=== PATIENT | female | born 1935 | race Caucasian/White ===

== ENCOUNTER 2018-10-15 08:24 | Observation (INO) ==
[2018-10-15] MEDS ORDERED: NORMAL SALINE 1,000 ML IV ONE (08:29)
[2018-10-15] MEDS ORDERED: PANTOPRAZOLE SODIUM 40 MG/100 ML PIGGYBACK IV ONE (09:04)
[2018-10-15 09:06] LABS: Hematocrit 39.8 % (37.0-47.0); Hemoglobin 12.9 gm/dL (12.5-16.0); Mean Cell Volume 91.5 fl (78-100); Mean Corpuscular Hemoglobin 29.7 pg (27-31); Mean Corpuscular Hgb Conc 32.4 g/dl (32-36); Neutrophil # 13.7 K/mm3 (1.3-6.0); Neutrophil % 85.9 % (42-75.0); Platelet Count 429 K/mm3 (150-450); Red Blood Count 4.35 M/mm3 (4.2-5.4); Red Cell Distribution Width 13.4 % (11.5-14.0); White Blood Count 15.9 K/mm3 (4.0-10.5)
[2018-10-15 09:09] LABS: Prothrombin Time (Patient) 10.7 Seconds (9.0-11.0)
[2018-10-15 09:10] LABS: INR 1.07 INR (0.90-1.10); Partial Thrombolplastin Time 22.9 Seconds (24-32)
[2018-10-15 09:13] LABS: Albumin * 3.8 gm/dl (3.4-5.0); Anion Gap 15.9 mmol/L (6.8-13.8); BUN/Creatinine Ratio 31.4 (9.0-21.6); Bilirubin, Total 0.4 mg/dL (0.0-1.1); Ca. Corrected For Albumin 10.1 mg/dL (8.4-10.2); Calcium * 10.3 mg/dL (7.9-10.9); Carbon Dioxide 30.5 mmol/L (24-32.6); Potassium 3.4 mmol/L (3.4-4.6); Total Protein 8.3 gm/dL (6.2-8.2)
[2018-10-15] MEDS ORDERED: DIATRIZOATE MEGLUMINE, SODIUM 30 ML BTL PO ONE (09:14)
--- NOTE | 2018-10-15 10:32 | ERNOTE ---
GI Bleeding/Rectal Pain ER Date of Service: 10/15/18 Time Seen by Provider: 10/15/18 08:27 Source: patient Exam Limitations: no limitations Immunizations: IMMUNIZATION HX Immunizations Up to Date Yes History of Influenza Vaccine No Hx Pneumococcal Vaccination Yes Allergies/Adverse Reactions: Allergies No Known Allergies Allergy (Verified 10/15/18 08:28) Home Medications: HOME MEDICATIONS amlodipine 10 mg tablet 10 mg PO DAILY #90 tab 08/10/18 [Last Taken Unknown] lisinopril 40 mg tablet 40 mg PO BID #180 tab 08/18/18 [Last Taken Unknown] metoprolol tartrate 50 mg tablet 50 mg PO BID #180 tab 08/18/18 [Last Taken Unknown] furosemide 40 mg tablet 40 mg PO DAILY #90 tab 08/23/18 [Last Taken Unknown] spironolactone 25 mg tablet 25 mg PO DAILY #90 tab 08/23/18 [Last Taken Unknown] trazodone 50 mg tablet 100 mg PO HS PRN #180 tab 08/25/18 [Last Taken Unknown] Narrative: Patient presents to the ED via ambulance for bloody stool. This started this morning. She had what she describes as a large bloody bowel movement with small clots. She has never had this before. Had back pain and has been taking a fair amount of Ibuprofen also baby ASA. Abdominal cramping earlier, none now. No vomiting. No CP or SOB. No bad food exposures. No trauma. Nothing makes this better or worse. Has not seen anyone else for this. Timing: constant Quality/Severity: Present: other - currently no abd pain, just some mild cramping Nausea/Vomiting: Present: none Abdominal Pain: Present: other - vague cramping Associated Symptoms: Denies: black stools Prior Treament: Denies: recently seen Review of Systems - Review of Systems Constitutional: Absent: fever EYE: Absent: eye pain Respiratory: Absent: shortness of breath Cardiology: Absent: chest pain Gastrointestinal/Abdominal: Present: no symptoms reported Genitourinary: Absent: dysuria All Other Systems: All systems neg except as marked Medical History (Last Reviewed 10/15/18 @ 12:26 by Matthew Gunn MD) Primary osteoarthritis involving multiple joints (Chronic) Onset Date: 07/02 Insomnia (Chronic) Onset Date: 07/02/17 Benign essential HTN (Chronic) Onset Date: 07/02/17 Blood pressure goal is less than 150/90mmHg. Arthritis Onset Date: Unknown HTN (hypertension) Onset Date: Unknown Murmur Onset Date: Unknown Surgical History: Surgical History (Last Reviewed 10/15/18 @ 12:26 by Matthew Gunn MD) Hx of cholecystectomy Onset Date: ~1975 Age 40 Hx of colonoscopy Onset Date: ~1999 Hx of hysterectomy Onset Date: ~1965 Age 30 Family History: Family History (Last Reviewed 10/15/18 @ 12:26 by Matthew Gunn MD) Father , Age 49 Heart disease Mother , Age 65 - Unknown health No problems noted. Sister Heart disease Mental disease Social History: Preferred Language Italian Smoking Status Never smoker Psych History No pertinent hx Alcohol Use none Drug Use none (Last Updated 07/12/18 @ 15:44 by Winifred Maher) No Social History Section defined Physical Exam - Physical Exam General Appearance: Present: alert, no apparent distress Head Exam: Present: normal inspection, no evidence of injury Eye Exam: Normal inspection: bilateral, PERRL: bilateral Ears, Nose, Throat: Present: normal ENT inspection Neck: Present: normal inspection Respiratory: Present: no respiratory distress, normal breath sounds, no accessory muscle use, lungs clear Cardiovascular/Chest: Present: regular rate, rhythm, normal peripheral pulses Gastrointestinal/Abdominal: Present: normal bowel sounds, soft, other - minimal periumbilical and suprapubic tenderness Back Exam: Absent: CVA tenderness (R), CVA tenderness (L) Extremity Exam: Present: normal inspection Neurological Exam: Present: alert, no motor/sensory deficits Skin Exam: Present: normal color, warm/dry Progress - Results and Orders Patient's Lab Results:: I have reviewed the patient's lab results. - Vital Signs Patient's Vital Signs:: I have reviewed the patient's vital signs. Vital Signs: Vital Signs 10/15/18 08:30 10/15/18 08:36 10/15/18 09:28 Temperature 36.3 C Pulse Rate 66 63 74 Respiratory Rate 16 16 18 Blood Pressure 127/64 109/64 157/71 H O2 Sat by Pulse Oximetry 97 97 99 10/15/18 09:54 Temperature Pulse Rate 67 Respiratory Rate 23 H Blood Pressure 147/67 O2 Sat by Pulse Oximetry 97 - CT/Ultrasound CT/Ultrasound Narrative: I reviewed official radiology report for CT scan - Progress/Reassessment Chief Complaint: GI Bleed Progress Note-Subjective: 10/15/18 12:27 IV fluids and IV ABx given. I spoke with Dr Betts then with Dr Hussein who will admit obs. Clinically her BM here was guaiac positive, looked more like an infectious diarrhea. Will admit for further evaluation and treatment. Departure Clinical Impression: Colitis, GI bleeding - Departure Disposition: Still a patient Condition: Fair Referrals: Cesia Garcia DO [Primary Care Provider] -
[2018-10-15 10:39] LABS: Urine Bilirubin Negative (NEGATIVE); Urine Blood Negative /ul (NEGATIVE); Urine Ketone Negative (NEGATIVE); Urine Nitrite Negative (NEGATIVE); Urine Protein Negative (NEGATIVE); Urine Specific Gravity 1.015 SP.GR. (1.005-1.010); Urine Urobilinogen Normal (NORMAL)
[2018-10-15 10:46] LABS: Urine Appearance Clear (CLEAR); Urine Bacteria None Seen; Urine Color Yellow; Urine RBC None Seen /hpf (0-5); Urine WBC None Seen /hpf (0-5)
[2018-10-15] MEDS ORDERED: MORPHINE SULFATE 4 MG/ML SYRG IV ONE (12:03)
[2018-10-15] MEDS ORDERED: metroNIDAZOLE/SODIUM CHLORIDE 500 MG/100 ML BAG IV SCH (12:15)
[2018-10-15] MEDS ORDERED: LEVOFLOXACIN IN DEXTROSE 5 % 500 MG/100 ML BAG IV SCH (12:15)
[2018-10-15] MEDS ORDERED: MORPHINE SULFATE 4 MG/ML SYRG IV PRN (14:34)
[2018-10-15] MEDS ORDERED: traMADol HCL 50 MG TABLET PO PRN (14:43)
[2018-10-15] MEDS ORDERED: traZODone HCL 50 MG TABLET PO PRN (14:44)
--- NOTE | 2018-10-15 14:45 | HP ---
Chief Complaint - Chief Complaint Date of Service: 10/15/18 Time of Service: 14:45 Chief Complaint: Blood In Stool History of Present Illness: Birdie is an 82 yo female that presented to the [facility] ER with abdominal pain and blood in stool. She reports her first episode was this morning, but had another "rust" colored stool in the ER that was hemoccult positive. She reports severe abdominal pain that moves. She denies fever, chills, nausea, or vomiting. She denies eating salad or uncooked meat recently. She denies any other sick friends or family members. She reports having a colonoscopy several years ago that was incomplete and required barium study that was done by GI. She denies any known colon problems but does state that she has been told that she has irritable bowel syndrome. She currently reports that she is pain free, after receiving morphine in the ER. Labs show WBC elevated near 15K and hemoglobin of 12. Medical History (Last Reviewed 10/15/18 @ 12:53 by Shayrn Garcia RN) Primary osteoarthritis involving multiple joints (Chronic) Onset Date: 07/02/17 Insomnia (Chronic) Onset Date: 07/02/17 Benign essential HTN (Chronic) Onset Date: 07/02/17 Blood pressure goal is less than 150/90mmHg. Arthritis Onset Date: Unknown HTN (hypertension) Onset Date: Unknown Murmur Onset Date: Unknown Surgical History: Surgical History (Last Reviewed 10/15/18 @ 12:53 by Sharyn Garcia RN) Hx of cholecystectomy Onset Date: ~1975 Age 40 Hx of colonoscopy Onset Date: ~1999 Hx of hysterectomy Onset Date: ~1965 Age 30 Family History: Family History (Last Reviewed 10/15/18 @ 12:53 by Sahryn Garcia RN) Father , Age 49 Heart disease Mother , Age 65 - Unknown health No problems noted. Sister Heart disease Mental disease Social History: Patient Lives/Resources Home Utilized Occupation retired Preferred Language Indonesian Do you have any congregational or Yes: Yazdanism / Restorationist cultural preference? Smoking Status Never smoker Have you smoked in the past 12 No months Psych History No pertinent hx Alcohol Use none Drug Use none (Last Updated 07/12/18 @ 15:44 by Winifred Maher) No Social History Section defined Review Of Systems (GEN) - Review of Systems Generalized/Overall Review: Present: Fatigue. Absent: Chills, Fever EENTM: Present: No Symptoms Reported Respiratory: Absent: Cough, Shortness of Breath Cardiac: Absent: Chest Pain, Edema, Palpitations Abdominal: Present: Abdominal Pain, Bright blood from rectum. Absent: Nausea, Vomiting, Hematemesis Genitourinary: Present: No Symptoms Reported Musculoskeletal: Present: No Symptoms Reported Neurological: Present: No Symptoms Reported Skin: Present: No Symptoms Reported Immunizations: IMMUNIZATION HX Immunizations Up to Date Yes History of Influenza Vaccine No Hx Pneumococcal Vaccination Yes Allergies/Adverse Reactions: Allergies Allergy/AdvReac Type Severity Reaction Status Date / Time No Known Allergies Allergy Verified 10/15/18 12:53 Home Medications: HOME MEDICATIONS amlodipine 10 mg tablet 10 mg PO DAILY #90 tab 08/10/18 [Last Taken 10/15/18] lisinopril 40 mg tablet 40 mg PO BID #180 tab 08/18/18 [Last Taken 10/15/18] metoprolol tartrate 50 mg tablet 50 mg PO BID #180 tab 08/18/18 [Last Taken 10/15/18] furosemide 40 mg tablet 40 mg PO DAILY #90 tab 08/23/18 [Last Taken 10/15/18] spironolactone 25 mg tablet 25 mg PO DAILY #90 tab 08/23/18 [Last Taken 10/15/18] trazodone 50 mg tablet 100 mg PO HS PRN #180 tab 08/25/18 [Last Taken 10/14/18] Exam - Exam Vital Signs: Vital Signs - Last Taken Temp 36.4 C 10/15/18 12:55 Pulse 76 10/15/18 12:55 Resp 20 10/15/18 12:55 BP 164/76 H 10/15/18 12:55 Pulse Ox 98 10/15/18 12:55 Constitutional: Present: Alert, Oriented x3, Cooperative, No distress ENT Exam: Present: hearing grossly normal Eye Exam: bilateral eye: normal inspection Respiratory: Present: lungs clear, normal breath sounds Cardiovascular/Chest: Present: regular rate, rhythm, no edema, no murmur Abdomen: Present: Normal bowel sounds, soft, nondistended, no rebound tenderness, no hepatospenomegaly, no masses, tender - diffuse. Absent: guarding, rigidity Extremity: Present: non-tender, normal inspection Skin Exam: Present: normal color, warm/dry, no cyanosis Neurologic: Present: no motor/sensory deficits, alert, normal mood/affect, oriented x 3 Appearance: Present: appropriate appearance, appropriate insight Eye contact: Present: cooperative, good eye contact, normal speech Thoughts: Present: normal thought pattern, no apparent hallucination Diagnostic Studies: Abnormal Lab Results 10/15/18 10/15/18 10/15/18 Range/Units 08:55 08:55 08:55 WBC 15.9 H (4.0-10.5) K/mm3 Immature Gran % (Auto) 1.10 H (0.001-0.429) % Immature Gran # (Auto) 0.18 H (0.000-0.0310) K/mm3 Neutrophils % 85.9 H (42-75.0) % Lymphocytes % 7.0 L (20-51) % Neutrophils # 13.7 H (1.3-6.0) K/mm3 Lymphocytes # 1.11 L (1.5-3.5) k/mm3 PTT ([place]) 22.9 L (24-32) Seconds Anion Gap 15.9 H (6.8-13.8) mmol/L BUN 33 H (3-23) mg/dL Est GFR (Non-Af Amer) 53 L (60-130) mL/min BUN/Creatinine Ratio 31.4 H (9.0-21.6) Random Glucose 117 H (70-110) mg/dL AST 63 H (0-48) U/L Alkaline Phosphatase 268 H (50-170) U/L Total Protein 8.3 H (6.2-8.2) gm/dL Stool Occult Blood 10/15/18 Range/Units 08:55 WBC (4.0-10.5) K/mm3 Immature Gran % (Auto) (0.001-0.429) % Immature Gran # (Auto) (0.000-0.0310) K/mm3 Neutrophils % (42-75.0) % Lymphocytes % (20-51) % Neutrophils # (1.3-6.0) K/mm3 Lymphocytes # (1.5-3.5) k/mm3 PTT ([place]) (24-32) Seconds Anion Gap (6.8-13.8) mmol/L BUN (3-23) mg/dL Est GFR (Non-Af Amer) (60-130) mL/min BUN/Creatinine Ratio (9.0-21.6) Random Glucose (70-110) mg/dL AST (0-48) U/L Alkaline Phosphatase (50-170) U/L Total Protein (6.2-8.2) gm/dL Stool Occult Blood Positive H Laboratory Results WBC 15.9 K/mm3 (4.0-10.5) H 10/15/18 08:55 RBC 4.35 M/mm3 (4.2-5.4) 10/15/18 08:55 Hgb 12.9 gm/dL (12.5-16.0) 10/15/18 08:55 Hct 39.8 % (37.0-47.0) 10/15/18 08:55 MCV 91.5 fl (78-100) 10/15/18 08:55 MCH 29.7 pg (27-31) 10/15/18 08:55 MCHC 32.4 g/dl (32-36) 10/15/18 08:55 RDW 13.4 % (11.5-14.0) 10/15/18 08:55 Plt Count 429 K/mm3 (150-450) 10/15/18 08:55 MPV 8.0 fl (8-12.5) 10/15/18 08:55 Immature Gran % (Auto) 1.10 % (0.001-0.429) H 10/15/18 08:55 Immature Gran # (Auto) 0.18 K/mm3 (0.000-0.0310) H 10/15/18 08:55 Neutrophils % 85.9 % (42-75.0) H 10/15/18 08:55 Lymphocytes % 7.0 % (20-51) L 10/15/18 08:55 Monocytes % 5.8 % (0.0-9) 10/15/18 08:55 Eosinophils % 0.0 % (0.0-3.0) 10/15/18 08:55 Basophils % 0.2 % (0.0-1.0) 10/15/18 08:55 Nucleated RBC % 0.0 k/mm3 (0-1) 10/15/18 08:55 Neutrophils # 13.7 K/mm3 (1.3-6.0) H 10/15/18 08:55 Lymphocytes # 1.11 k/mm3 (1.5-3.5) L 10/15/18 08:55 Monocytes # 0.9 k/mm3 (0.0-1.0) 10/15/18 08:55 Eosinophils # 0.0 k/mm3 (0.0-0.7) 10/15/18 08:55 Absolute Basophils 0.0 k/mm3 (0.0-0.1) 10/15/18 08:55 PT 10.7 Seconds (9.0-11.0) 10/15/18 08:55 INR (Anticoag Therapy) 1.07 INR (0.90-1.10) 10/15/18 08:55 PTT ([place]) 22.9 Seconds (24-32) L 10/15/18 08:55 Sodium 141 mmol/L (132-142) 10/15/18 08:55 Plasma Sodium 141 mmol/L (130-142) 10/15/18 08:55 Potassium 3.4 mmol/L (3.4-4.6) D 10/15/18 08:55 Chloride 98 mmol/L (97-106) 10/15/18 08:55 Carbon Dioxide 30.5 mmol/L (24-32.6) 10/15/18 08:55 Anion Gap 15.9 mmol/L (6.8-13.8) H 10/15/18 08:55 BUN 33 mg/dL (3-23) H 10/15/18 08:55 Creatinine 1.05 mg/dL (0.4-1.4) 10/15/18 08:55 Est GFR (Non-Af Amer) 53 mL/min (60-130) L 10/15/18 08:55 BUN/Creatinine Ratio 31.4 (9.0-21.6) H 10/15/18 08:55 Random Glucose 117 mg/dL (70-110) H 10/15/18 08:55 Calcium 10.3 mg/dL (7.9-10.9) 10/15/18 08:55 Calcium Adj for Albumin 10.1 mg/dL (8.4-10.2) 10/15/18 08:55 Total Bilirubin 0.4 mg/dL (0.0-1.1) 10/15/18 08:55 AST 63 U/L (0-48) H 10/15/18 08:55 ALT 63 U/L (19-67) 10/15/18 08:55 Alkaline Phosphatase 268 U/L (50-170) H 10/15/18 08:55 Total Protein 8.3 gm/dL (6.2-8.2) H 10/15/18 08:55 Albumin 3.8 gm/dl (3.4-5.0) 10/15/18 08:55 Lipase 159 U/L (73-393) 10/15/18 08:55 Urine Color Yellow 10/15/18 10:33 Urine Appearance Clear (CLEAR) 10/15/18 10:33 Urine pH 6.0 pH (5.0-7.0) 10/15/18 10:33 Ur Specific [place] 1.015 SP.GR. (1.005-1.010) 10/15/18 10:33 Urine Protein Negative mg/dL (NEGATIVE) 10/15/18 10:33 Urine Glucose (UA) Negative mg/dL (NEGATIVE) 10/15/18 10:33 Urine Ketones Negative mg/dL (NEGATIVE) 10/15/18 10:33 Urine Blood Negative /ul (NEGATIVE) 10/15/18 10:33 Urine Nitrate Negative (NEGATIVE) 10/15/18 10:33 Urine Bilirubin Negative mg/dl (NEGATIVE) 10/15/18 10:33 Urine Urobilinogen Normal EU/dl (NORMAL) 10/15/18 10:33 Ur Leukocyte Esterase Negative /ul (NEGATIVE) 10/15/18 10:33 Urine RBC None seen /hpf (0-5) 10/15/18 10:33 Urine WBC None seen /hpf (0-5) 10/15/18 10:33 Ur Epithelial Cells 0-5 /hpf (0-5) 10/15/18 10:33 Urine Bacteria None seen (NONE) 10/15/18 10:33 Urine Culture Comments No culture indicated 10/15/18 10:33 Stool Occult Blood Positive H 10/15/18 08:55 Blood Type A Positive 10/15/18 08:55 Antibody Screen Negative 10/15/18 08:55 Assessment/Plan - Assessment/Plan (1) Colitis Assessment: Birdie is an 82 yo female with: 1) GI Bleed - Hemoccult positive, visualized by ERP as rust colored and infectious appearing. Likely lower GI bleed. Will cover with PPI just in case of gastric bleed. Will monitor hemograms every 6 hours. Birdie is not acutely ill and GI bleed does not appear to be significant so I will admit to observation and she may have clear liquid diet for now. GI bleed suspected to be secondary to colitis, possibly infectious. If symptoms controlled and hemogram stable may be discharged to home tomorrow. 2) Infectious Colitis - Suspected based on leukocytosis and CT imaging. Bloody loose stools present. Will treat with Levaquin 500mg PO daily. Culture stools and ova and parasite pending. 3) Abnormal CT - Findings may all be secondary to colitis. But may consider outpatient follow up with GI vs general surgery. Problem: Acute (2) GI bleeding Problem: Acute Qualifiers: GI bleed type/associated pathology: unspecified gastrointestinal hemorrhage type Qualified Code(s): K92.2 - Gastrointestinal hemorrhage, unspecified
[2018-10-15 14:55] LABS: Hematocrit 32.7 % (37.0-47.0); Hemoglobin 10.8 gm/dL (12.5-16.0); Mean Cell Volume 90.6 fl (78-100); Mean Corpuscular Hemoglobin 29.9 pg (27-31); Mean Platelet Volume 7.9 fl (8-12.5); Platelet Count 282 K/mm3 (150-450); Red Blood Count 3.61 M/mm3 (4.2-5.4); Red Cell Distribution Width 13.3 % (11.5-14.0); White Blood Count 15.3 K/mm3 (4.0-10.5)
[2018-10-15] MEDS: ACETAMINOPHEN 325 MG TABLET PO PRN (20:21)
[2018-10-15] MEDS: METOPROLOL TARTRATE 50 MG TABLET PO SCH (20:21)
[2018-10-15] MEDS: LISINOPRIL 40 MG TABLET PO SCH (20:30)
[2018-10-15 20:40] LABS: Hematocrit 35.6 % (37.0-47.0); Hemoglobin 11.7 gm/dL (12.5-16.0); Mean Cell Volume 90.1 fl (78-100); Mean Corpuscular Hemoglobin 29.6 pg (27-31); Mean Corpuscular Hgb Conc 32.9 g/dl (32-36); Mean Platelet Volume 7.9 fl (8-12.5); Platelet Count 329 K/mm3 (150-450); Red Blood Count 3.95 M/mm3 (4.2-5.4); Red Cell Distribution Width 13.3 % (11.5-14.0); White Blood Count 14.7 K/mm3 (4.0-10.5)
[2018-10-16 03:05] LABS: Hematocrit 33.2 % (37.0-47.0); Hemoglobin 10.9 gm/dL (12.5-16.0); Mean Cell Volume 90.5 fl (78-100); Mean Corpuscular Hemoglobin 29.7 pg (27-31); Mean Corpuscular Hgb Conc 32.8 g/dl (32-36); Mean Platelet Volume 7.7 fl (8-12.5); Platelet Count 261 K/mm3 (150-450); Red Blood Count 3.67 M/mm3 (4.2-5.4); Red Cell Distribution Width 13.5 % (11.5-14.0); White Blood Count 12.8 K/mm3 (4.0-10.5)
[2018-10-16 06:39] LABS: Albumin * 2.8 gm/dl (3.4-5.0); Anion Gap 11.1 mmol/L (6.8-13.8); Bilirubin, Total 0.4 mg/dL (0.0-1.1); Ca. Corrected For Albumin 9.9 mg/dL (8.4-10.2); Calcium * 9.3 mg/dL (7.9-10.9); Carbon Dioxide 29.3 mmol/L (24-32.6); Potassium 3.4 mmol/L (3.4-4.6); Total Protein 6.7 gm/dL (6.2-8.2)
[2018-10-16 08:48] LABS: Hematocrit 34.9 % (37.0-47.0); Hemoglobin 11.3 gm/dL (12.5-16.0); Mean Cell Volume 90.9 fl (78-100); Mean Corpuscular Hemoglobin 29.4 pg (27-31); Mean Corpuscular Hgb Conc 32.4 g/dl (32-36); Mean Platelet Volume 8.1 fl (8-12.5); Platelet Count 299 K/mm3 (150-450); Red Blood Count 3.84 M/mm3 (4.2-5.4); Red Cell Distribution Width 13.5 % (11.5-14.0); White Blood Count 15.3 K/mm3 (4.0-10.5)
[2018-10-16] MEDS: ACETAMINOPHEN 325 MG TABLET PO PRN (08:48)
[2018-10-16] MEDS: METOPROLOL TARTRATE 50 MG TABLET PO SCH (08:49)
[2018-10-16] MEDS: LISINOPRIL 40 MG TABLET PO SCH (08:50)
[2018-10-16] MEDS ORDERED: FUROSEMIDE 40 MG TABLET PO SCH (09:00)
[2018-10-16] MEDS ORDERED: PANTOPRAZOLE SODIUM 40 MG in NORMAL SALINE 100 ML IV SCH (09:00)
[2018-10-16] MEDS ORDERED: SPIRONOLACTONE 25 MG TABLET PO SCH (09:00)
[2018-10-16] MEDS ORDERED: amLODIPine BESYLATE 10 MG TABLET PO SCH (09:00)
--- NOTE | 2018-10-16 10:34 | DS ---
Description of Stay: 82-year-old female presented to the ER yesterday with abdominal pain and blood in her stool. She states that she started having diarrhea the day of admission, she had only had a few episodes of this. She was Hemoccult positive in the ER. Last bowel movement was the day of admission, her hemoglobin was 12.9 and trended down to 11.3 upon discharge. Some of the drop can be attributed to hemodilution from the IV fluids she received. She was not actively bleeding while here and her vital signs have been stable. She denies having any fevers or chills. Abdominal CT scan was obtained showing nonspecific bowel thickening over her distal transverse colon down to the rectosigmoid colon indicating likely colitis versus ischemia (ischemia less likely though due to her benign exam, being pain-free). There is mentioned a possibility of a partial potential obstruction proximal to the bowel wall thickening of the distal transverse colon though the patient was passing gas well, having regular bowel movements, and was not in any abdominal pain once admitted to the floor. Her exam on discharge was benign. She was discharged home in stable condition. We will continue oral antibiotics for possible colitis as she had an elevated white count upon admission at 15.9 which trended down to 15.3. She is to take the antibiotics as directed. We will have her follow-up with Dr. Hussein in the next 3-5 days for reevaluation, and repeat CBC to check white blood cell count as well as hemoglobin levels. Procedures Performed: none Results and Findings: Pending Mircobiology Results 10/15/18 10:42 Stool Stool Culture - Preliminary No Pathogens Isolated Lab Pending Results 10/15/18 08:55: WBC 15.9 H, RBC 4.35, Hgb 12.9, Hct 39.8, MCV 91.5, MCH 29.7, MCHC 32.4, RDW 13.4, Plt Count 429, MPV 8.0, Immature Gran % (Auto) 1.10 H, Immature Gran # (Auto) 0.18 H, Neutrophils % 85.9 H, Lymphocytes % 7.0 L, Monocytes % 5.8, Eosinophils % 0.0, Basophils % 0.2, Nucleated RBC % 0.0, Neutrophils # 13.7 H, Lymphocytes # 1.11 L, Monocytes # 0.9, Eosinophils # 0.0, Absolute Basophils 0.0 10/15/18 08:55: Sodium 141, Plasma Sodium 141, Potassium 3.4 D, Chloride 98, Carbon Dioxide 30.5, Anion Gap 15.9 H, BUN 33 H, Creatinine 1.05, Est GFR (Non- Af Amer) 53 L, BUN/Creatinine Ratio 31.4 H, Random Glucose 117 H, Calcium 10.3, Calcium Adj for Albumin 10.1, Total Bilirubin 0.4, AST 63 H, ALT 63, Alkaline Phosphatase 268 H, Total Protein 8.3 H, Albumin 3.8 10/15/18 08:55: PT 10.7, INR (Anticoag Therapy) 1.07, PTT ([place]) 22.9 L 10/15/18 08:55: Blood Type A Positive, Antibody Screen Negative 10/15/18 08:55: Stool Occult Blood Positive H 10/15/18 08:55: Lipase 159 10/15/18 10:33: Urine Color Yellow, Urine Appearance Clear, Urine pH 6.0, Ur Specific [place] 1.015, Urine Protein Negative, Urine Glucose (UA) Negative, Urine Ketones Negative, Urine Blood Negative, Urine Nitrate Negative, Urine Bilirubin Negative, Urine Urobilinogen Normal, Ur Leukocyte Esterase Negative, Urine RBC None seen, Urine WBC None seen, Ur Epithelial Cells 0-5, Urine Ba cteria None seen, Urine Culture Comments No culture indicated 10/15/18 14:50: WBC 15.3 H, RBC 3.61 L, Hgb 10.8 L, Hct 32.7 L, MCV 90.6, MCH 29.9, MCHC 33.0, RDW 13.3, Plt Count 282, MPV 7.9 L 10/15/18 20:35: WBC 14.7 H, RBC 3.95 L, Hgb 11.7 L, Hct 35.6 L, MCV 90.1, MCH 29.6, MCHC 32.9, RDW 13.3, Plt Count 329, MPV 7.9 L 10/16/18 03:00: WBC 12.8 H, RBC 3.67 L, Hgb 10.9 L, Hct 33.2 L, MCV 90.5, MCH 29.7, MCHC 32.8, RDW 13.5, Plt Count 261, MPV 7.7 L 10/16/18 06:05: Sodium 137, Plasma Sodium 137, Potassium 3.4, Chloride 100, Carbon Dioxide 29.3, Anion Gap 11.1, BUN 22, Creatinine 0.88, Est GFR (Non-Af Amer) 65 D, BUN/Creatinine Ratio 25.0 H, Random Glucose 129 H, Calcium 9.3, Calcium Adj for Albumin 9.9, Total Bilirubin 0.4, AST 45, ALT 61, Alkaline Phosphatase 208 H, Total Protein 6.7, Albumin 2.8 L 10/16/18 08:35: WBC 15.3 H, RBC 3.84 L, Hgb 11.3 L, Hct 34.9 L, MCV 90.9, MCH 29.4, MCHC 32.4, RDW 13.5, Plt Count 299, MPV 8.1 Discharge Location: Home Disposition: Home self-care Condition: Fair Discharge Activity: Activity as tolerated Discharge Diet: General/regular food, Other - [place], soft diet while on antibiotics which you presents Referrals: Jonny Hussein, [Staff Physician] - Problem Oriented Discharge Instructions to Patient/Family: Gastrointestinal Bleeding, [id number], Colitis Additional Patient Instructions (free text): -Please make TCM appointment unless residential discharge. Thank you! Doris @ [phone]. Please follow up with Dr. Hussein in the next 3-5 days. Prescriptions (Any new or edited meds): Ciprofloxacin HCl [Cipro] 500 mg PO BID #14 tab metroNIDAZOLE [Flagyl] 500 mg PO Q12H #14 tab Complete Home Medications List: Complete Home Medication List: amlodipine 10 mg tablet 10 mg PO DAILY #90 tab 08/10/18 lisinopril 40 mg tablet 40 mg PO BID #180 tab 08/18/18 metoprolol tartrate 50 mg tablet 50 mg PO BID #180 tab 08/18/18 furosemide 40 mg tablet 40 mg PO DAILY #90 tab 08/23/18 spironolactone 25 mg tablet 25 mg PO DAILY #90 tab 08/23/18 trazodone 50 mg tablet 100 mg PO HS PRN #180 tab 08/25/18 Acetaminophen [Tylenol] 650 mg PO Q4H PRN tab 10/16/18 Ciprofloxacin HCl [Cipro] 500 mg PO BID #14 tab 10/16/18 metroNIDAZOLE [Flagyl] 500 mg PO Q12H #14 tab 10/16/18 traMADol HCL [Ultram] 50 mg PO Q4H PRN tab 10/16/18
[2018-10-16] MEDS ORDERED: LEVOFLOXACIN 500 MG TABLET PO SCH (11:00)
[2018-10-16 14:54] VITALS: BP 136/62
== END 2018-10-16 14:55 | disposition home or self-care (01) ==
LOC: ER 08:24 → MS 08:24
PROVIDERS: ADMIT Family Medicine; ATTEND Family Medicine
DX: K52.9 Noninfective gastroenteritis and colitis, unspecified
CPT/HCPCS: 36415; 74177; 80053; 81001; 82272; 83690; 85025; 85027; 85610; 85730; 86850; 86900; 87045; 87046; 87177; 87209; 96365; 96366; 96375; 99285; G0378

== ENCOUNTER 2018-10-17 16:16 | Inpatient (IN) ==
[2018-10-17 17:06] LABS: Hematocrit 35.1 % (37.0-47.0); Hemoglobin 11.5 gm/dL (12.5-16.0); Mean Cell Volume 89.5 fl (78-100); Mean Corpuscular Hemoglobin 29.3 pg (27-31); Mean Corpuscular Hgb Conc 32.8 g/dl (32-36); Mean Platelet Volume 7.9 fl (8-12.5); Neutrophil # 11.8 K/mm3 (1.3-6.0); Neutrophil % 77.8 % (42-75.0); Platelet Count 394 K/mm3 (150-450); Red Blood Count 3.92 M/mm3 (4.2-5.4); Red Cell Distribution Width 13.6 % (11.5-14.0); White Blood Count 15.2 K/mm3 (4.0-10.5)
[2018-10-17] MEDS ORDERED: NORMAL SALINE 1,000 ML IV ONE (17:10)
[2018-10-17] MEDS ORDERED: traMADol HCL 50 MG TABLET PO ONE (17:11)
[2018-10-17 17:20] LABS: Albumin * 3.2 gm/dl (3.4-5.0); Anion Gap 16.5 mmol/L (6.8-13.8); BUN/Creatinine Ratio 25.6 (9.0-21.6); Bilirubin, Total 0.3 mg/dL (0.0-1.1); Carbon Dioxide 28.4 mmol/L (24-32.6); Potassium 2.9 mmol/L (3.4-4.6); Total Protein 7.5 gm/dL (6.2-8.2)
[2018-10-17 17:24] LABS: Ca. Corrected For Albumin 10.3 mg/dL (8.4-10.2)
[2018-10-17 17:29] LABS: Amylase * 27 U/L (25-115); Lipase 117 U/L (73-393)
[2018-10-17 17:35] LABS: Urine Appearance Clear (CLEAR); Urine Bacteria None Seen; Urine Bilirubin Negative (NEGATIVE); Urine Blood Negative /ul (NEGATIVE); Urine Color Yellow; Urine Ketone 15 mg/dL (NEGATIVE); Urine Nitrite Negative (NEGATIVE); Urine Protein Negative (NEGATIVE); Urine RBC None Seen /hpf (0-5); Urine Specific Gravity 1.025 SP.GR. (1.005-1.010); Urine Urobilinogen Normal (NORMAL); Urine WBC None Seen /hpf (0-5); Urine pH 6.5 pH (5.0-7.0)
--- NOTE | 2018-10-17 17:35 | ERNOTE ---
Neuro HPI ER Record Date of Service: 10/17/18 Presenting Symptoms: other - Weakness, reported bloody diarrhea, confusion Time Seen by Provider: 10/17/18 16:49 Source: patient, family, past records Exam Limitations: no limitations Immunizations: IMMUNIZATION HX Immunizations Up to Date Yes History of Influenza Vaccine No Hx Pneumococcal Vaccination Yes Allergies/Adverse Reactions: Allergies Allergy/AdvReac Type Severity Reaction Status Date / Time No Known Allergies Allergy Verified 10/17/18 16:32 Home Medications: HOME MEDICATIONS amlodipine 10 mg tablet 10 mg PO DAILY #90 tab 08/10/18 [Last Taken 10/15/18] lisinopril 40 mg tablet 40 mg PO BID #180 tab 08/18/18 [Last Taken 10/15/18] metoprolol tartrate 50 mg tablet 50 mg PO BID #180 tab 08/18/18 [Last Taken 10/15/18] furosemide 40 mg tablet 40 mg PO DAILY #90 tab 08/23/18 [Last Taken 10/15/18] spironolactone 25 mg tablet 25 mg PO DAILY #90 tab 08/23/18 [Last Taken 10/15/18] trazodone 50 mg tablet 100 mg PO HS PRN #180 tab 08/25/18 [Last Taken 10/14/18] Acetaminophen [Tylenol] 650 mg PO Q4H PRN tab 10/16/18 [Last Taken Unknown] Ciprofloxacin HCl [Cipro] 500 mg PO BID #14 tab 10/16/18 [Last Taken Unknown] metroNIDAZOLE [Flagyl] 500 mg PO Q12H #14 tab 10/16/18 [Last Taken Unknown] - History of Present Illness Narrative: Patient states she was brought in by her family for worsening weakness, bloody diarrhea, with confusion. Apparently patient was in the ER 2 days ago with reports of colitis and discharged yesterday morning. She then went home and has stayed in bed since that time. Patient had reported 4-5 bouts of bloody diarrhea today. Family state patient is very weak and confused this evening. 4 wks ago patient started with lower back pain especially with movement and this is why she states she cannot get out of bed. Has not had any imaging. States if she lays still she has no pain but any movement in bed causes right lower abdominal pain that does not radiate into the hips or legs. Date (Duration): 10/15/18 Severity: mild - Character of Deficits New weakness: Present: other - No report of weakness. Altered sensation: Present: other - No report of altered sensation Additional Deficits: Present: weakness, off balance Baseline Cognition: Present: alert, oriented x 4 Baseline Gait: Present: walks w/o assistance Associated Symptoms: Reports: none - Reported altered Prior Treament: Reports: recently seen, treated by physician, recently hospitalized, similar symptoms before Review of Systems - Review of Systems Constitutional: Present: recent illness, weakness, fatigue, decreased activity level EYE: Present: no symptoms reported ENT: Present: no symptoms reported Respiratory: Present: no symptoms reported Cardiology: Present: no symptoms reported Gastrointestinal/Abdominal: Present: See HPI, diarrhea, abdominal pain Genitourinary: Present: no symptoms reported, decreased urinary output. Absent: dysuria Musculoskeletal: Present: See HPI, back pain - Lower back pain with movement. Skin: Present: no symptoms reported Neurological: Present: weakness, other - Family states she is confused today. . Absent: headache, dizziness/light-headedness Endocrine: Present: no symptoms reported Hematologic/Lymphatic: Present: no symptoms reported Psych: Present: no symptoms reported Medical History (Last Reviewed 10/17/18 @ 16:33 by Sarah Carvajal RN) Primary osteoarthritis involving multiple joints (Chronic) Onset Date: 07/02/17 Insomnia (Chronic) Onset Date: 07/02/17 Benign essential HTN (Chronic) Onset Date: 07/02/17 Blood pressure goal is less than 150/90mmHg. Arthritis Onset Date: Unknown HTN (hypertension) Onset Date: Unknown Murmur Onset Date: Unknown Surgical History: Surgical History (Last Reviewed 10/17/18 @ 16:33 by Sarah Carvajal RN) Hx of cholecystectomy Onset Date: ~1975 Age 40 Hx of colonoscopy Onset Date: ~1999 Hx of hysterectomy Onset Date: ~1965 Age 30 Family History: Family History (Last Reviewed 10/17/18 @ 16:33 by Sarah Carvajal RN) Father , Age 49 Heart disease Mother , Age 65 - Unknown health No problems noted. Sister Heart disease Mental disease Social History: Preferred Language Greek Smoking Status Never smoker Psych History No pertinent hx Alcohol Use none Drug Use none (Last Updated 07/12/18 @ 15:44 by Winifred Maher) No Social History Section defined Physical Exam - Physical Exam General Appearance: Present: wd/wn, alert, mild distress Head Exam: Present: normal inspection, no evidence of injury Eye Exam: Normal inspection: bilateral, PERRL: bilateral, EOMI: bilateral Ears, Nose, Throat: Present: normal ENT inspection, normal pharynx Neck: Present: normal inspection, nontender, supple, full range of motion Respiratory: Present: no respiratory distress, normal breath sounds, no accessory muscle use, chest nontender, lungs clear Cardiovascular/Chest: Present: regular rate, rhythm, no murmur, normal peripheral pulses Gastrointestinal/Abdominal: Present: soft, tenderness, other - Lower tenderness with palpation. No rebound. No organomegally. . Absent: guarding, rebound, Psoas sign Back Exam: Present: no CVA tenderness - Right lumbar paraspinal tenderness. No abnormal bony structure or lumbar point tenderness. Negative straight leg raise bilateral. Extremity Exam: Present: normal inspection - Push pulls strong. No arm or leg drift. , normal range of motion Neurological Exam: Present: alert, oriented, normal mood/affect, no motor/sensory deficits, pivot end polisher II-XII nml as tested - Does appear very weak. Skin Exam: Present: normal color, warm/dry Arnoldo Coma Scale - Assess Eye Opening: Spontaneous Motor: Obeys Commands Verbal: Oriented - Total Coma Scale Total: 15 Initial Stroke Assessment - NIH Stroke Scale Level of Consciousness: Alert LOC Questions (Year and Age): Answers both correctly LOC Commands (open/close eyes/fist): Performs neither correct Visual Field Loss: No visual loss Facial Palsy: Normal movement Right Arm Motor (10 sec hold): No drift Left Arm Motor (10 sec hold): No drift Right Leg Motor (5 sec hold): No drift Left Leg Motor (5 sec hold): No drift Limb Ataxia (finger/nose heel/hernandez): Absent Sensory Loss (pinprick arms/legs/face): No sensory loss Language Aphasia (description/naming/reading): No aphasia; normal Dysarthria (speech clarity): Normal articulation Neglect Inattention (visual/tactile/auditory/spatial/person): No neglect Progress - Results and Orders Patient's Lab Results:: I have reviewed the patient's lab results. - Vital Signs Patient's Vital Signs:: I have reviewed the patient's vital signs. Vital Signs: Vital Signs 10/17/18 16:29 Temperature 37.2 C Pulse Rate 84 Respiratory Rate 14 Blood Pressure 162/79 H O2 Sat by Pulse Oximetry 99 - Progress/Reassessment Chief Complaint: Altered Mental Status Progress:: Improved - Improved mentation after fluids. However extremily weak. - Transfer of Care Additional Notes: Discussed patient with Dr. Hussein who agreed with our findings patient meets criteria for inpatient. Hypokalemia, dehydration, diarrhea, positive blood in stools. Departure Clinical Impression: Colitis, Hypokalemia due to loss of potassium, Dehydration fever GI bleeding Qualifiers: GI bleed type/associated pathology: unspecified gastrointestinal hemorrhage type Qualified Code(s): K92.2 - Gastrointestinal hemorrhage, unspecified - Departure Disposition: Still a patient Condition: Stable
[2018-10-17] MEDS ORDERED: POTASSIUM CHLORIDE 20 MEQ TABLET.SA PO ONE (17:46)
[2018-10-17] MEDS ORDERED: hydrALAZINE HCL 20 MG/ML VIAL IV ONE (18:07)
[2018-10-17] MEDS ORDERED: CIPROFLOXACIN HCL 250 MG TABLET PO ONE (19:34)
[2018-10-17] MEDS ORDERED: ACETAMINOPHEN 325 MG TABLET PO ONE (19:35)
[2018-10-17] MEDS: metroNIDAZOLE 500 MG TABLET PO SCH (19:42)
[2018-10-17] MEDS: NORMAL SALINE 1,000 ML IV PRN (21:50)
[2018-10-18] MEDS: NORMAL SALINE 1,000 ML IV PRN ×2 (05:35→17:16)
[2018-10-18 08:16] LABS: Hematocrit 34.7 % (37.0-47.0); Hemoglobin 11.2 gm/dL (12.5-16.0); Mean Cell Volume 91.8 fl (78-100); Mean Corpuscular Hemoglobin 29.6 pg (27-31); Mean Corpuscular Hgb Conc 32.3 g/dl (32-36); Mean Platelet Volume 8.1 fl (8-12.5); Neutrophil # 11.9 K/mm3 (1.3-6.0); Neutrophil % 84.3 % (42-75.0); Platelet Count 415 K/mm3 (150-450); Red Blood Count 3.78 M/mm3 (4.2-5.4); Red Cell Distribution Width 13.7 % (11.5-14.0); White Blood Count 14.2 K/mm3 (4.0-10.5)
[2018-10-18 08:20] LABS: Anion Gap 19.5 mmol/L (6.8-13.8); Carbon Dioxide 20.7 mmol/L (24-32.6); Potassium 3.2 mmol/L (3.4-4.6)
[2018-10-18] MEDS ORDERED: LORazepam 0.5 MG TABLET PO PRN (08:40)
[2018-10-18] MEDS ORDERED: traZODone HCL 50 MG TABLET PO PRN (08:42)
[2018-10-18] MEDS ORDERED: LORazepam 2 MG/ML DISP.SYRIN IV ONE (09:00)
[2018-10-18] MEDS ORDERED: POTASSIUM CHLORIDE 20 MEQ TABLET.SA PO ONE (13:32)
--- NOTE | 2018-10-18 13:52 | ANES ---
Anesthesia Pre Procedure Eval Vitals/Labs: Last Vital Signs Temp 36.9 C 10/18/18 07:55 Pulse 111 H 10/18/18 13:27 Resp 24 H 10/18/18 13:27 BP 178/93 H 10/18/18 13:27 Pulse Ox 95 10/18/18 13:27 HOME MEDICATIONS lisinopril 40 mg tablet 40 mg PO BID #180 tab 08/18/18 [Last Taken 10/15/18] metoprolol tartrate 50 mg tablet 50 mg PO BID #180 tab 08/18/18 [Last Taken 10/15/18] furosemide 40 mg tablet 40 mg PO DAILY #90 tab 08/23/18 [Last Taken 10/17/18 09:30] spironolactone 25 mg tablet 25 mg PO DAILY #90 tab 08/23/18 [Last Taken 10/15/18] trazodone 50 mg tablet 100 mg PO HS PRN #180 tab 08/25/18 [Last Taken 10/14/18] Acetaminophen [Tylenol] 650 mg PO Q4H PRN tab 10/16/18 [Last Taken 10/17/18] Ciprofloxacin HCl [Cipro] 500 mg PO BID #14 tab 10/16/18 [Last Taken 10/17/18] metroNIDAZOLE [Flagyl] 500 mg PO Q12H #14 tab 10/16/18 [Last Taken Unknown] Allergies/Adverse Reactions: Allergies Allergy/AdvReac Type Severity Reaction Status Date / Time No Known Allergies Allergy Verified 10/17/18 16:32 - Planned Procedure Planned Procedure: COLITIS,MSC,GI BLEED,HYPOKALEMIA,DEHYDRATION Medication List Reviewed:: Yes Allergies Verified: Yes Medical History (Last Reviewed 10/18/18 @ 13:49 by Jimbo López CRNA) Primary osteoarthritis involving multiple joints (Chronic) Onset Date: 07/02/17 Insomnia (Chronic) Onset Date: 07/02/17 Benign essential HTN (Chronic) Onset Date: 07/02/17 Blood pressure goal is less than 150/90mmHg. Arthritis Onset Date: Unknown HTN (hypertension) Onset Date: Unknown Murmur Onset Date: Unknown Surgical History (Last Reviewed 10/18/18 @ 13:49 by Jimbo López CRNA) Hx of cholecystectomy Onset Date: ~1975 Age 40 Hx of colonoscopy Onset Date: ~1999 Hx of hysterectomy Onset Date: ~1966 Age 30 Family History (Last Reviewed 10/18/18 @ 13:49 by Jimbo López CRNA) Father , Age 49 Heart disease Mother , Age 65 - Unknown health No problems noted. Sister Heart disease Mental disease - Family Anesthesia History Family History:: no untoward family reactions to anesthesia, no familial bleeding tendencies, no family history of clotting disorders, no family history of premature - Airway/Neck/Teeth Within Normal Limits:: Yes Teeth Condition: intact Neck Exam: full range of motion Mallampatti Score: 2 Thyromental (T-M) distance: > 6 cm Mandibulo Hyoid distance: > 3 cm - Respiratory Respiratory Physical: lungs clear Smoking Status: Former smoker - distant Discussed smoking cessation including day of surgery: No Sleep Apnea currently treated: No Sleep Apnea by current assessment: No - Cardiovascular Cardiac History: CHF - ?Lasix Tolerate Activity: Fair Heart Sounds: S1 & S2, Irregular - Anesthesia Assessment and Plan ASA Class: PS, IV - recent seizures Anesthesia Type Plan: MAC
--- NOTE | 2018-10-18 13:55 | HP ---
Chief Complaint - Chief Complaint Date of Service: 10/18/18 Time of Service: 08:00 Chief Complaint: Weakness History of Present Illness: Birdie is an 82 yo female that was found at home extremely weak and unable to get out of bed. She had not been eating or drinking. She was recently diagnosed with colitis presumed to be infectious and treated with cipro/flagyl. She had been treated initially in the hospital under observation then, discharged to home with continued outpatient treatment. She had bloody diarrhea. To date stool cultures are negative. Hemoglobin was 11.3 at discharge. Today hemoglobin remains 11.5. Her potassium today is 2.9. Medical History (Last Reviewed 10/18/18 @ 13:49 by Jimbo López CRNA) Primary osteoarthritis involving multiple joints (Chronic) Onset Date: 07/02/17 Insomnia (Chronic) Onset Date: 07/02/17 Benign essential HTN (Chronic) Onset Date: 07/02/17 Blood pressure goal is less than 150/90mmHg. Arthritis Onset Date: Unknown HTN (hypertension) Onset Date: Unknown Murmur Onset Date: Unknown Surgical History: Surgical History (Last Reviewed 10/18/18 @ 13:49 by Jimbo López CRNA) Hx of cholecystectomy Onset Date: ~1975 Age 40 Hx of colonoscopy Onset Date: ~1999 Hx of hysterectomy Onset Date: ~1965 Age 30 Family History: Family History (Last Reviewed 10/18/18 @ 13:49 by Jimbo López CRNA) Father , Age 49 Heart disease Mother , Age 65 - Unknown health No problems noted. Sister Heart disease Mental disease Social History: Patient Lives/Resources Home Utilized Preferred Language Andorran Do you have any lutheran or Yes: Druze cultural preference? Smoking Status Former smoker Have you smoked in the past 12 No months Do you dip or chew tobacco No Psych History No pertinent hx Alcohol Use none Drug Use none (Last Updated 07/12/18 @ 15:44 by Winifred Maher) No Social History Section defined Review Of Systems (GEN) - Review of Systems Generalized/Overall Review: Present: Weakness. Absent: Chills, Fever EENTM: Present: No Symptoms Reported Respiratory: Absent: Cough, Shortness of Breath Cardiac: Absent: Chest Pain, Edema, Palpitations, Syncope Abdominal: Present: Abdominal Pain, Diarrhea, Bright blood from rectum. Absent: Nausea, Vomiting, Hematemesis, Constipation Genitourinary: Present: No Symptoms Reported Musculoskeletal: Present: No Symptoms Reported Neurological: Present: Seizure, Weakness Skin: Present: No Symptoms Reported Endocrine: Present: No Symptoms Reported Immunizations: IMMUNIZATION HX Immunizations Up to Date Yes History of Influenza Vaccine No Hx Pneumococcal Vaccination Yes Allergies/Adverse Reactions: Allergies Allergy/AdvReac Type Severity Reaction Status Date / Time No Known Allergies Allergy Verified 10/17/18 16:32 Home Medications: HOME MEDICATIONS lisinopril 40 mg tablet 40 mg PO BID #180 tab 08/18/18 [Last Taken 10/15/18] metoprolol tartrate 50 mg tablet 50 mg PO BID #180 tab 08/18/18 [Last Taken 10/15/18] furosemide 40 mg tablet 40 mg PO DAILY #90 tab 08/23/18 [Last Taken 10/17/18 09:30] spironolactone 25 mg tablet 25 mg PO DAILY #90 tab 08/23/18 [Last Taken 10/15/18] trazodone 50 mg tablet 100 mg PO HS PRN #180 tab 08/25/18 [Last Taken 10/14/18] Acetaminophen [Tylenol] 650 mg PO Q4H PRN tab 10/16/18 [Last Taken 10/17/18] Ciprofloxacin HCl [Cipro] 500 mg PO BID #14 tab 10/16/18 [Last Taken 10/17/18] metroNIDAZOLE [Flagyl] 500 mg PO Q12H #14 tab 10/16/18 [Last Taken Unknown] Exam - Exam Vital Signs: Vital Signs - Last Taken Temp 36.9 C 10/18/18 07:55 Pulse 111 H 10/18/18 13:27 Resp 24 H 10/18/18 13:27 BP 178/93 H 10/18/18 13:27 Pulse Ox 95 10/18/18 13:27 Constitutional: Present: Alert, Oriented x3, Cooperative, Somnolent ENT Exam: Present: hearing grossly normal Eye Exam: bilateral eye: normal inspection Respiratory: Present: lungs clear, normal breath sounds, no respiratory distress Cardiovascular/Chest: Present: regular rate, rhythm, no murmur Peripheral Pulses: radial (R): 2+, radial (L): 2+ Abdomen: Present: Normal bowel sounds, soft, nontender, nondistended Skin Exam: Present: normal color, warm/dry, no cyanosis Neurologic: Present: motor weakness - Left-sided district court bailiff strength 3 out of 5 right- sided district court bailiff strength 5 out of 5, other - Patient was observed to have full body tremoring, followed by left-sided weakness. Patient's convulsions lasted approx imately 1-1/2 minutes. Patient was immediately somnolent however over a period of minutes patient gradually became more alert and oriented x3 patient does not recall episode. Diagnostic Studies: Abnormal Lab Results 10/17/18 10/17/18 10/17/18 Range/Units 16:50 16:50 18:51 WBC 15.2 H (4.0-10.5) K/mm3 RBC 3.92 L (4.2-5.4) M/mm3 Hgb 11.5 L (12.5-16.0) gm/dL Hct 35.1 L (37.0-47.0) % MPV 7.9 L (8-12.5) fl Immature Gran % (Auto) 1.40 H (0.001-0.429) % Immature Gran # (Auto) 0.21 H (0.000-0.0310) K/mm3 Neutrophils % 77.8 H (42-75.0) % Lymphocytes % 12.5 L (20-51) % Neutrophils # 11.8 H (1.3-6.0) K/mm3 Lymphocytes # (1.5-3.5) k/mm3 Monocytes # 1.2 H (0.0-1.0) k/mm3 Sodium 143 H (132-142) mmol/L Plasma Sodium 143 H (130-142) mmol/L Potassium 2.9 L (3.4-4.6) mmol/L Carbon Dioxide (24-32.6) mmol/L Anion Gap 16.5 H (6.8-13.8) mmol/L BUN/Creatinine Ratio 25.6 H (9.0-21.6) Calcium Adj for Albumin 10.3 H (8.4-10.2) mg/dL Alkaline Phosphatase 224 H (50-170) U/L Albumin 3.2 L (3.4-5.0) gm/dl Stool Occult Blood Positive H 10/18/18 10/18/18 Range/Units 08:05 08:05 WBC 14.2 H (4.0-10.5) K/mm3 RBC 3.78 L (4.2-5.4) M/mm3 Hgb 11.2 L (12.5-16.0) gm/dL Hct 34.7 L (37.0-47.0) % MPV (8-12.5) fl Immature Gran % (Auto) 2.40 H (0.001-0.429) % Immature Gran # (Auto) 0.34 H (0.000-0.0310) K/mm3 Neutrophils % 84.3 H (42-75.0) % Lymphocytes % 6.8 L (20-51) % Neutrophils # 11.9 H (1.3-6.0) K/mm3 Lymphocytes # 0.97 L (1.5-3.5) k/mm3 Monocytes # (0.0-1.0) k/mm3 Sodium 143 H (132-142) mmol/L Plasma Sodium (130-142) mmol/L Potassium 3.2 L (3.4-4.6) mmol/L Carbon Dioxide 20.7 L (24-32.6) mmol/L Anion Gap 19.5 H (6.8-13.8) mmol/L BUN/Creatinine Ratio (9.0-21.6) Calcium Adj for Albumin (8.4-10.2) mg/dL Alkaline Phosphatase (50-170) U/L Albumin (3.4-5.0) gm/dl Stool Occult Blood Laboratory Results WBC 14.2 K/mm3 (4.0-10.5) H 10/18/18 08:05 RBC 3.78 M/mm3 (4.2-5.4) L 10/18/18 08:05 Hgb 11.2 gm/dL (12.5-16.0) L 10/18/18 08:05 Hct 34.7 % (37.0-47.0) L 10/18/18 08:05 MCV 91.8 fl (78-100) 10/18/18 08:05 MCH 29.6 pg (27-31) 10/18/18 08:05 MCHC 32.3 g/dl (32-36) 10/18/18 08:05 RDW 13.7 % (11.5-14.0) 10/18/18 08:05 Plt Count 415 K/mm3 (150-450) 10/18/18 08:05 MPV 8.1 fl (8-12.5) 10/18/18 08:05 Immature Gran % (Auto) 2.40 % (0.001-0.429) H 10/18/18 08:05 Immature Gran # (Auto) 0.34 K/mm3 (0.000-0.0310) H 10/18/18 08:05 Neutrophils % 84.3 % (42-75.0) H 10/18/18 08:05 Lymphocytes % 6.8 % (20-51) L 10/18/18 08:05 Monocytes % 5.9 % (0.0-9) 10/18/18 08:05 Eosinophils % 0.1 % (0.0-3.0) 10/18/18 08:05 Basophils % 0.5 % (0.0-1.0) 10/18/18 08:05 Nucleated RBC % 0.0 k/mm3 (0-1) 10/18/18 08:05 Neutrophils # 11.9 K/mm3 (1.3-6.0) H 10/18/18 08:05 Lymphocytes # 0.97 k/mm3 (1.5-3.5) L 10/18/18 08:05 Monocytes # 0.8 k/mm3 (0.0-1.0) 10/18/18 08:05 Eosinophils # 0.0 k/mm3 (0.0-0.7) 10/18/18 08:05 Absolute Basophils 0.1 k/mm3 (0.0-0.1) 10/18/18 08:05 Sodium 143 mmol/L (132-142) H 10/18/18 08:05 Plasma Sodium 143 mmol/L (130-142) H 10/17/18 16:50 Potassium 3.2 mmol/L (3.4-4.6) L 10/18/18 08:05 Chloride 106 mmol/L (97-106) 10/18/18 08:05 Carbon Dioxide 20.7 mmol/L (24-32.6) L 10/18/18 08:05 Anion Gap 19.5 mmol/L (6.8-13.8) H 10/18/18 08:05 BUN 22 mg/dL (3-23) 10/17/18 16:50 Creatinine 0.86 mg/dL (0.4-1.4) 10/17/18 16:50 Est GFR (Non-Af Amer) 67 mL/min (60-130) 10/17/18 16:50 BUN/Creatinine Ratio 25.6 (9.0-21.6) H 10/17/18 16:50 Random Glucose 107 mg/dL (70-110) 10/17/18 16:50 Calcium 10.0 mg/dL (7.9-10.9) 10/17/18 16:50 Calcium Adj for Albumin 10.3 mg/dL (8.4-10.2) H 10/17/18 16:50 Total Bilirubin 0.3 mg/dL (0.0-1.1) 10/17/18 16:50 AST 29 U/L (0-48) 10/17/18 16:50 ALT 42 U/L (19-67) 10/17/18 16:50 Alkaline Phosphatase 224 U/L (50-170) H 10/17/18 16:50 Total Protein 7.5 gm/dL (6.2-8.2) 10/17/18 16:50 Albumin 3.2 gm/dl (3.4-5.0) L 10/17/18 16:50 Amylase 27 U/L (25-115) 10/17/18 16:50 Lipase 117 U/L (73-393) 10/17/18 16:50 Procalcitonin 0.15 ng/mL (0.05-0.50) 10/17/18 16:50 Urine Color Yellow 10/17/18 17:23 Urine Appearance Clear (CLEAR) 10/17/18 17:23 Urine pH 6.5 pH (5.0-7.0) 10/17/18 17:23 Ur Specific [place] 1.025 SP.GR. (1.005-1.010) 10/17/18 17:23 Urine Protein Negative mg/dL (NEGATIVE) 10/17/18 17:23 Urine Glucose (UA) Negative mg/dL (NEGATIVE) 10/17/18 17:23 Urine Ketones 15 mg/dL (NEGATIVE) 10/17/18 17:23 Urine Blood Negative /ul (NEGATIVE) 10/17/18 17:23 Urine Nitrate Negative (NEGATIVE) 10/17/18 17:23 Urine Bilirubin Negative mg/dl (NEGATIVE) 10/17/18 17:23 Urine Urobilinogen Normal EU/dl (NORMAL) 10/17/18 17:23 Ur Leukocyte Esterase Negative /ul (NEGATIVE) 10/17/18 17:23 Urine RBC None seen /hpf (0-5) 10/17/18 17:23 Urine WBC None seen /hpf (0-5) 10/17/18 17:23 Ur Epithelial Cells None seen /hpf (0-5) 10/17/18 17:23 Urine Bacteria None seen (NONE) 10/17/18 17:23 Urine Culture Comments No culture indicated 10/17/18 17:23 Stool Occult Blood Positive H 10/17/18 18:51 Assessment/Plan - Narrative Narrative: Birdie is an 82-year-old female with: 1) hypokalemia-Birdie has a potassium of 2.9 to poor oral intake and dehydration. Potassium replaced and monitored. Due to her significant hypokalemia admission and will take greater than 2 midnights for potassium replacement and monitoring. 2) seizure -Birdie had a seizure-like episode witnessed. She was given IV Ativan and will be started on IV Keppra 500 mg IV every [address] was completed which showed no acute abnormality. A brain MRI completed to further evaluate altered mental status or new seizure it may be related to hypokalemia, however potassium is not that severely low. Upon further family questioning, Birdie does not have a personal or family history of seizure. 3) colitis-patient will be continued on ciprofloxacin and Flagyl for treatment of suspected infectious colitis. Stool cultures are negative to date. Hemoglobin is stable. - Assessment/Plan (1) Hypokalemia Problem: Acute (2) Seizure Problem: Acute (3) Colitis Problem: Acute (4) GI bleeding Problem: Acute Qualifiers: GI bleed type/associated pathology: unspecified gastrointestinal hemorrhage type Qualified Code(s): K92.2 - Gastrointestinal hemorrhage, unspecified
--- NOTE | 2018-10-18 14:20 | ANES ---
Anesthesia Pre Procedure Eval Vitals/Labs: Last Vital Signs Temp 36.9 C 10/18/18 07:55 Pulse 111 H 10/18/18 13:27 Resp 24 H 10/18/18 13:27 BP 178/93 H 10/18/18 13:27 Pulse Ox 95 10/18/18 13:27 HOME MEDICATIONS lisinopril 40 mg tablet 40 mg PO BID #180 tab 08/18/18 [Last Taken 10/15/18] metoprolol tartrate 50 mg tablet 50 mg PO BID #180 tab 08/18/18 [Last Taken 10/15/18] furosemide 40 mg tablet 40 mg PO DAILY #90 tab 08/23/18 [Last Taken 10/17/18 09:30] spironolactone 25 mg tablet 25 mg PO DAILY #90 tab 08/23/18 [Last Taken 10/15/18] trazodone 50 mg tablet 100 mg PO HS PRN #180 tab 08/25/18 [Last Taken 10/14/18] Ciprofloxacin HCl [Cipro] 500 mg PO BID #14 tab 10/16/18 [Last Taken 10/17/18] RX: Acetaminophen [Tylenol] 650 mg PO Q4H PRN tab 10/16/18 [Last Taken 10/17/18] metroNIDAZOLE [Flagyl] 500 mg PO Q12H #14 tab 10/16/18 [Last Taken Unknown] Allergies/Adverse Reactions: Allergies Allergy/AdvReac Type Severity Reaction Status Date / Time No Known Allergies Allergy Verified 10/17/18 16:32 - Planned Procedure Planned Procedure: MRI Medication List Reviewed:: Yes Allergies Verified: Yes Medical History (Last Updated 10/18/18 @ 15:38 by Vel Wallace CRNA) Primary osteoarthritis involving multiple joints (Chronic) Onset Date: 07/02/17 Insomnia (Chronic) Onset Date: 07/02/17 Benign essential HTN (Chronic) Onset Date: 07/02/17 Blood pressure goal is less than 150/90mmHg. Hypernatremia Hypokalemia Seizure Arthritis Onset Date: Unknown HTN (hypertension) Onset Date: Unknown Murmur Onset Date: Unknown Surgical History (Last Reviewed 10/18/18 @ 15:38 by Vel Wallace CRNA) Hx of cholecystectomy Onset Date: ~1975 Age 40 Hx of colonoscopy Onset Date: ~1999 Hx of hysterectomy Onset Date: ~1966 Age 30 Family History (Last Reviewed 10/18/18 @ 15:38 by Vel Wallace CRNA) Father , Age 49 Heart disease Mother , Age 65 - Unknown health No problems noted. Sister Heart disease Mental disease - Airway/Neck/Teeth Teeth Condition: intact Mallampatti Score: 2 Thyromental (T-M) distance: > 6 cm Mandibulo Hyoid distance: > 3 cm - Respiratory Respiratory Physical: lungs clear Smoking Status: Former smoker Discussed smoking cessation including day of surgery: No Sleep Apnea currently treated: No Sleep Apnea by current assessment: No Discussed Risks/Treatment of SHAYNA: No - Cardiovascular Tolerate Activity: Poor Heart Sounds: S1 & S2, Regular - Anesthesia Assessment and Plan ASA Class: PS, IV, E Anesthesia Type Plan: MAC
--- NOTE | 2018-10-18 15:39 | ANES ---
Post Anesthesia Discharge - Transfer of Care Transfer of Care handoff given to nurse: Yes - Discharge from PACU Discharge from PACU when meets criteria: Yes - Discharge to ASU Discharge to ASU-no complications/pt stable: Yes
--- NOTE | 2018-10-18 15:39 | ANES ---
Post Anesthesia Assessment - Vital Signs Vitals: Last Vital Signs Temp 36.9 C 10/18/18 07:55 Pulse 111 H 10/18/18 13:27 Resp 24 H 10/18/18 13:27 BP 178/93 H 10/18/18 13:27 Pulse Ox 95 10/18/18 13:27 Airway Patency: Normal - Mental Status Level Of Consciousness: Drowsy - Pain Level Pain Score: 0 - N/V Assessment Nausea/Vomiting Presence: None Dehydration:: No
[2018-10-18] MEDS: METOPROLOL TARTRATE 50 MG TABLET PO SCH ×2 (16:21→20:28)
[2018-10-18] MEDS: LISINOPRIL 40 MG TABLET PO SCH ×2 (16:21→20:29)
[2018-10-18] MEDS: CIPROFLOXACIN HCL 500 MG TABLET PO SCH (16:22)
[2018-10-18] MEDS: SPIRONOLACTONE 25 MG TABLET PO SCH (16:22)
[2018-10-18] MEDS: metroNIDAZOLE 500 MG TABLET PO SCH (16:23)
[2018-10-18] MEDS: ACETAMINOPHEN 325 MG TABLET PO PRN ×2 (16:28→20:28)
[2018-10-19] MEDS: NORMAL SALINE 1,000 ML IV PRN ×3 (01:59→20:32)
[2018-10-19] MEDS: CIPROFLOXACIN HCL 500 MG TABLET PO SCH ×3 (02:02→20:34)
[2018-10-19] MEDS: metroNIDAZOLE 500 MG TABLET PO SCH ×4 (02:02→20:34)
[2018-10-19] MEDS ORDERED: LORazepam 2 MG/ML DISP.SYRIN IV ONE ×2 (08:06→14:53)
[2018-10-19] MEDS ORDERED: LORazepam 2 MG/ML DISP.SYRIN ONE ×2 (08:10→14:55)
[2018-10-19] MEDS: METOPROLOL TARTRATE 50 MG TABLET PO SCH ×2 (08:44→20:34)
[2018-10-19] MEDS: SPIRONOLACTONE 25 MG TABLET PO SCH (08:44)
[2018-10-19 09:24] LABS: Hematocrit 34.6 % (37.0-47.0); Hemoglobin 10.9 gm/dL (12.5-16.0); Mean Corpuscular Hgb Conc 31.5 g/dl (32-36); Mean Platelet Volume 8.1 fl (8-12.5); Neutrophil # 7.2 K/mm3 (1.3-6.0); Neutrophil % 74.8 % (42-75.0); Platelet Count 351 K/mm3 (150-450); Red Blood Count 3.76 M/mm3 (4.2-5.4); Red Cell Distribution Width 13.8 % (11.5-14.0)
[2018-10-19 09:31] LABS: White Blood Count 2.5 K/mm3 (4.0-10.5)
[2018-10-19] MEDS: LISINOPRIL 40 MG TABLET PO SCH ×2 (09:37→20:34)
[2018-10-19 09:45] LABS: Albumin * 2.9 gm/dl (3.4-5.0); Anion Gap 12.7 mmol/L (6.8-13.8); BUN/Creatinine Ratio 13.9 (9.0-21.6); Bilirubin, Total 0.3 mg/dL (0.0-1.1); Ca. Corrected For Albumin 9.9 mg/dL (8.4-10.2); Calcium * 9.3 mg/dL (7.9-10.9); Carbon Dioxide 26.4 mmol/L (24-32.6); Potassium 3.1 mmol/L (3.4-4.6); TSH * 3.004 uIU/mL (0.358-3.74); Total Protein 6.8 gm/dL (6.2-8.2)
[2018-10-19] MEDS ORDERED: POTASSIUM CHLORIDE 20 MEQ TABLET.SA PO ONE ×2 (11:38→16:47)
[2018-10-19] MEDS: LIDOCAINE 1 PATCH ADH..PATCH TP SCH (12:40)
[2018-10-19] MEDS: ACETAMINOPHEN 325 MG TABLET PO PRN (12:40)
[2018-10-19] MEDS: ASPIRIN 325 MG TABLET.DR PO SCH (13:15)
[2018-10-19] MEDS ORDERED: POTASSIUM CHLORIDE 20 MEQ TABLET.SA ONE (20:39)
--- NOTE | 2018-10-19 23:33 | PN ---
Subjective - Date and Time Seen Date: 10/19/18 Time: 12:00 Subjective Narrative: Birdie has continued to have "spells". She becomes fidgety, then spaces out, she wants to grab a hand and squeeze, she is unable to answer questions appropriately. These episodes last about 10-15 minutes. After the spell she is back to her normal state and is alert and oriented. She does not recall the spells. I discussed with Dr. Weaver, Neurology. He suspects they are seizures and agrees with use of Keppra and obtaining EEG (which was performed today) and repeating Brain MRI. Objective - Vitals Vitals: Last Vital Signs Temp 37.2 C 10/19/18 08:16 Pulse 73 10/19/18 20:34 Resp 16 10/19/18 14:25 BP 138/41 10/19/18 20:34 Pulse Ox 100 10/19/18 14:25 - Abnormal Lab Findings Abnormal Lab Findings: Abnormal Lab Results 10/19/18 10/19/18 Range/Units 08:46 08:46 WBC 2.5 L D (4.0-10.5) K/mm3 RBC 3.76 L (4.2-5.4) M/mm3 Hgb 10.9 L (12.5-16.0) gm/dL Hct 34.6 L (37.0-47.0) % MCHC 31.5 L (32-36) g/dl Immature Gran % (Auto) 2.40 H (0.001-0.429) % Immature Gran # (Auto) 0.23 H (0.000-0.0310) K/mm3 Lymphocytes % 13.8 L (20-51) % Neutrophils # 7.2 H (1.3-6.0) K/mm3 Lymphocytes # 1.34 L (1.5-3.5) k/mm3 Sodium 143 H (132-142) mmol/L Plasma Sodium 143 H (130-142) mmol/L Potassium 3.1 L (3.4-4.6) mmol/L Chloride 107 H (97-106) mmol/L Alkaline Phosphatase 215 H (50-170) U/L Albumin 2.9 L (3.4-5.0) gm/dl - Exam Constitutional: Present: Alert, Cooperative, Other - I witnessed a spell. She was awake and staring, she was speaking during this spell. Her son, Otis, asked her to tell him his name. She responded "Irving". She was disoriented and unable to say who she was or her date of . Within 10 minutes she came back to her normal self. She was then able to say her son's name was Otis, recall her name and date of . Respiratory: Present: lungs clear, normal breath sounds, no respiratory distress Cardiovascular/Chest: Present: regular rate, rhythm, no murmur Abdomen: Present: Normal bowel sounds, soft, nontender, nondistended Skin Exam: Present: normal color, warm/dry, no cyanosis Assessment/Plan Plan Narrative: Birdie is an 82 yo female with spells, likely seizures. I have increased her Keppra to 1000mg IV q12hr. She was previously taking trazodone and was given tramadol in the ER. It could be the combination of these medications and the stress of a recent colitis that caused seizures. It is also possible she had a stroke. Brain MRI completed the other day did not show a stroke, but it was also incomplete due to the cold weather. MRI machine is currently being worked on and Neurology recommended repeating this non-emergent once able. Neurology agreed with current treatment plan. Will get EEG today. Will continue to stop trazodone and tramadol. - Problems/Diagnosis (1) Seizure Problem: Acute (2) Hypokalemia Problem: Acute (3) Colitis Problem: Resolved (4) GI bleeding Problem: Resolved Qualifiers: GI bleed type/associated pathology: unspecified gastrointestinal hemorrhage type Qualified Code(s): K92.2 - Gastrointestinal hemorrhage, unspecified
[2018-10-20] MEDS: NORMAL SALINE 1,000 ML IV PRN (05:00)
[2018-10-20 09:33] LABS: Hematocrit 34.9 % (37.0-47.0); Mean Cell Volume 93.3 fl (78-100); Mean Corpuscular Hemoglobin 29.4 pg (27-31); Mean Corpuscular Hgb Conc 31.5 g/dl (32-36); Mean Platelet Volume 7.9 fl (8-12.5); Platelet Count 348 K/mm3 (150-450); Red Blood Count 3.74 M/mm3 (4.2-5.4); Red Cell Distribution Width 14.1 % (11.5-14.0); White Blood Count 10.2 K/mm3 (4.0-10.5)
[2018-10-20 09:36] LABS: Total Cells Counted 100
[2018-10-20] MEDS: metroNIDAZOLE 500 MG TABLET PO SCH ×2 (09:36→20:38)
[2018-10-20] MEDS: SPIRONOLACTONE 25 MG TABLET PO SCH (09:36)
[2018-10-20] MEDS: ASPIRIN 325 MG TABLET.DR PO SCH (09:36)
[2018-10-20] MEDS: CIPROFLOXACIN HCL 500 MG TABLET PO SCH ×2 (09:36→20:38)
[2018-10-20] MEDS: METOPROLOL TARTRATE 50 MG TABLET PO SCH ×2 (09:36→20:38)
[2018-10-20] MEDS: LISINOPRIL 40 MG TABLET PO SCH ×2 (09:36→20:38)
[2018-10-20] MEDS: LIDOCAINE 1 PATCH ADH..PATCH TP SCH (09:37)
[2018-10-20 09:57] LABS: Atypical (Reactive) Lymph 3 % (0-2); Band 7 % (0-2.0); Eosinophil 1 % (0-3); Lymphocyte 16 % (20-51); Monocyte 2 % (0-9); Neutrophil 71 % (42-75); Neutrophil # 7.2 K/mm3 (1.3-6.0); Platelet Estimate Normal (NORMAL); RBC Morphology Normal (NORMAL)
[2018-10-20 10:02] LABS: Albumin * 2.9 gm/dl (3.4-5.0); Anion Gap 13.4 mmol/L (6.8-13.8); BUN/Creatinine Ratio 16.1 (9.0-21.6); Bilirubin, Total 0.2 mg/dL (0.0-1.1); Ca. Corrected For Albumin 9.7 mg/dL (8.4-10.2); Calcium * 9.1 mg/dL (7.9-10.9); Carbon Dioxide 24.3 mmol/L (24-32.6); Potassium 3.7 mmol/L (3.4-4.6); Total Protein 6.8 gm/dL (6.2-8.2)
[2018-10-20] MEDS ORDERED: LORazepam 0.5 MG TABLET PO ONE (16:01)
[2018-10-20] MEDS: LORazepam 2 MG/ML DISP.SYRIN IV PRN ×2 (18:54→20:34)
[2018-10-20] MEDS: ACETAMINOPHEN 325 MG TABLET PO PRN (19:01)
--- NOTE | 2018-10-20 22:42 | PN ---
Subjective - Date and Time Seen Date: 10/20/18 Time: 11:30 Subjective Narrative: Spells have been less frequent. Did have another episode this morning that lasted for 10 minutes, but she was able to talk through the episode, was just confused. The previously episdode was about 18 hours prior and she has otherwise been doing well. No fever, chills, nausea, or vomiting. Denies pain. Objective - Vitals Vitals: Last Vital Signs Temp 36.4 C 10/20/18 19:42 Pulse 89 10/20/18 20:38 Resp 20 10/20/18 19:42 BP 167/87 H 10/20/18 20:38 Pulse Ox 96 10/20/18 19:42 - Abnormal Lab Findings Abnormal Lab Findings: Abnormal Lab Results 10/20/18 10/20/18 Range/Units 09:28 09:28 RBC 3.74 L (4.2-5.4) M/mm3 Hgb 11.0 L (12.5-16.0) gm/dL Hct 34.9 L (37.0-47.0) % MCHC 31.5 L (32-36) g/dl RDW 14.1 H (11.5-14.0) % MPV 7.9 L (8-12.5) fl Band Neuts % (Manual) 7 H (0-2.0) % Lymphocytes % (Manual) 16 L (20-51) % Neutrophils # (Manual) 7.2 H (1.3-6.0) K/mm3 Atypic/Reactive Lymphs 3 H (0-2) % Random Glucose 206 H D (70-110) mg/dL Alkaline Phosphatase 224 H (50-170) U/L Albumin 2.9 L (3.4-5.0) gm/dl - Exam Constitutional: Present: Alert, Oriented x3, Cooperative ENT Exam: Present: hearing grossly normal Respiratory: Present: lungs clear, normal breath sounds Cardiovascular/Chest: Present: regular rate, rhythm, no murmur Abdomen: Present: Normal bowel sounds, soft, nontender, nondistended Neurologic: Present: no motor/sensory deficits, alert, normal mood/affect, oriented x 3 Assessment/Plan Plan Narrative: Episodes have improved since increasing Keppra to 1000mg q12hr. Seizures may be from trazodone and tramadol combination vs stroke. Still unable to get MRI today, should be able to repeat MRI tomorrow. - Problems/Diagnosis (1) Seizure Problem: Acute (2) Hypokalemia Problem: Resolved (3) Colitis Problem: Resolved (4) GI bleeding Problem: Resolved Qualifiers: GI bleed type/associated pathology: unspecified gastrointestinal hemorrhage type Qualified Code(s): K92.2 - Gastrointestinal hemorrhage, unspecified
[2018-10-21] MEDS: ACETAMINOPHEN 325 MG TABLET PO PRN ×3 (07:33→21:35)
[2018-10-21 09:10] LABS: Albumin * 2.6 gm/dl (3.4-5.0); Anion Gap 11.6 mmol/L (6.8-13.8); BUN/Creatinine Ratio 17.6 (9.0-21.6); Bilirubin, Total 0.2 mg/dL (0.0-1.1); Ca. Corrected For Albumin 9.9 mg/dL (8.4-10.2); Calcium * 9.1 mg/dL (7.9-10.9); Carbon Dioxide 25.4 mmol/L (24-32.6); Total Protein 6.2 gm/dL (6.2-8.2)
[2018-10-21] MEDS: CIPROFLOXACIN HCL 500 MG TABLET PO SCH ×2 (09:15→21:23)
[2018-10-21] MEDS: LISINOPRIL 40 MG TABLET PO SCH ×2 (09:16→21:24)
[2018-10-21] MEDS: SPIRONOLACTONE 25 MG TABLET PO SCH (09:16)
[2018-10-21] MEDS: ASPIRIN 325 MG TABLET.DR PO SCH (09:16)
[2018-10-21] MEDS: METOPROLOL TARTRATE 50 MG TABLET PO SCH ×2 (09:16→21:23)
[2018-10-21] MEDS: LIDOCAINE 1 PATCH ADH..PATCH TP SCH (09:16)
--- NOTE | 2018-10-21 10:45 | ANES ---
Anesthesia Pre Procedure Eval Vitals/Labs: Last Vital Signs Temp 36.0 C 10/21/18 09:25 Pulse 71 10/21/18 09:16 Resp 20 10/21/18 09:00 BP 135/70 10/21/18 09:16 Pulse Ox 96 10/21/18 09:00 HOME MEDICATIONS lisinopril 40 mg tablet 40 mg PO BID #180 tab 08/18/18 [Last Taken 10/15/18] metoprolol tartrate 50 mg tablet 50 mg PO BID #180 tab 08/18/18 [Last Taken 10/15/18] furosemide 40 mg tablet 40 mg PO DAILY #90 tab 08/23/18 [Last Taken 10/17/18 09:30] spironolactone 25 mg tablet 25 mg PO DAILY #90 tab 08/23/18 [Last Taken 10/15/18] trazodone 50 mg tablet 100 mg PO HS PRN #180 tab 08/25/18 [Last Taken 10/14/18] Acetaminophen [Tylenol] 650 mg PO Q4H PRN tab 10/16/18 [Last Taken 10/17/18] Ciprofloxacin HCl [Cipro] 500 mg PO BID #14 tab 10/16/18 [Last Taken 10/17/18] metroNIDAZOLE [Flagyl] 500 mg PO Q12H #14 tab 10/16/18 [Last Taken Unknown] Allergies/Adverse Reactions: Allergies Allergy/AdvReac Type Severity Reaction Status Date / Time No Known Allergies Allergy Verified 10/17/18 16:32 - Planned Procedure Planned Procedure: COLITIS,GI BLEED,HYPOKALEMIA,DEHYDRATION,WEAKNESS Medication List Reviewed:: Yes Allergies Verified: Yes Medical History (Last Reviewed 10/21/18 @ 10:44 by Matthew Ramos CRNA) Primary osteoarthritis involving multiple joints (Chronic) Onset Date: 07/02/17 Insomnia (Chronic) Onset Date: 07/02/17 Benign essential HTN (Chronic) Onset Date: 07/02/17 Blood pressure goal is less than 150/90mmHg. Hypernatremia Hypokalemia Seizure Arthritis Onset Date: Unknown HTN (hypertension) Onset Date: Unknown Murmur Onset Date: Unknown Surgical History (Last Reviewed 10/21/18 @ 10:44 by Matthew Ramos CRNA) Hx of cholecystectomy Onset Date: ~1975 Age 40 Hx of colonoscopy Onset Date: ~1999 Hx of hysterectomy Onset Date: ~1965 Age 30 Family History (Last Reviewed 10/21/18 @ 10:44 by Matthew Ramos CRNA) Father , Age 49 Heart disease Mother , Age 65 - Unknown health No problems noted. Sister Heart disease Mental disease - Family Anesthesia History Family History:: no untoward family reactions to anesthesia - Airway/Neck/Teeth Within Normal Limits:: Yes Teeth Condition: intact Neck Exam: full range of motion Mallampatti Score: 1 Thyromental (T-M) distance: > 6 cm Mandibulo Hyoid distance: > 3 cm - Respiratory Respiratory Physical: lungs clear Smoking Status: Never smoker Sleep Apnea currently treated: No Sleep Apnea by current assessment: No - Cardiovascular Cardiac History: CHF, hypertension Tolerate Activity: Fair Heart Sounds: S1 & S2, Regular - Anesthesia Assessment and Plan ASA Class: PS, III Anesthesia Type Plan: MAC
[2018-10-21 10:56] LABS: Hematocrit 34.8 % (37.0-47.0); Hemoglobin 11.3 gm/dL (12.5-16.0); Mean Cell Volume 91.6 fl (78-100); Mean Corpuscular Hemoglobin 29.7 pg (27-31); Mean Corpuscular Hgb Conc 32.5 g/dl (32-36); Mean Platelet Volume 8.3 fl (8-12.5); Neutrophil # 8.1 K/mm3 (1.3-6.0); Neutrophil % 67.6 % (42-75.0); Platelet Count 345 K/mm3 (150-450); White Blood Count 11.9 K/mm3 (4.0-10.5)
--- NOTE | 2018-10-21 11:57 | ANES ---
Post Anesthesia Discharge - Transfer of Care Transfer of Care handoff given to nurse: Yes - Anesthesia Post Op Note Anesthesia Post Op Note: Care transferred to med-surgery assistant
--- NOTE | 2018-10-21 11:58 | ANES ---
Post Anesthesia Assessment - Vital Signs Vitals: Last Vital Signs Temp 36.0 C 10/21/18 11:49 Pulse 51 L 10/21/18 11:49 Resp 17 10/21/18 11:49 BP 137/59 10/21/18 11:49 Pulse Ox 98 10/21/18 11:49 Airway Patency: Normal - Mental Status Level Of Consciousness: Awake - Pain Level Pain Score: 0 - N/V Assessment Nausea/Vomiting Presence: None Dehydration:: No
--- NOTE | 2018-10-21 13:50 | ANES ---
Anesthesia Procedure Note Procedure Note: ANESTHESIA PROCEDURE NOTE Date of Procedure: 10/21/2018. Time of procedure: 1310. Performed by: Vel Wallace CRNA Second Language Tutor: None. Preprocedure diagnosis: Seizure. Post procedure diagnosis: Same. Procedure: Lumbar Puncture. Indications: This 82-year-old female who is been admitted with mental status change and seizure.. Findings: Opening pressure = 13 mmHg Closing pressure = 12 mmHg. Details of the procedure: After informed consent was obtained the patient was placed in the left lateral decubitus position. Duraprep was applied to the patients back. The patient was then draped in a sterile fasion. Lidocaine 1% was infiltrated to the skin and subcutaneous tissues at the intended target site. The subarachnoid scace was identified at the level of the L4-5 interspace using a 22-gauge quickie spinal needle. Free flow of CSF was noted. Pressure measurements were obtained. Four specimens were drawn and sent to lab. Total fluid removed was 8 mL. The spinal needle was removed intact. A Band-Aid was applied to the patient's back. EBL: Minimal. Fluids: N/A. Specimen: N/A. Post procedure condition: The patient tolerated the procedure well. No complications were noted. Thank you for this consultation. Vel Wallace CRNA
[2018-10-21 14:44] LABS: CSF Appearance Clear (CLEAR); CSF Color Colorless (COLORLESS)
[2018-10-21 14:45] LABS: CSF RBC 0 /uL (0-10)
[2018-10-21 14:54] LABS: CSF WBC 0 /uL (0-10)
--- NOTE | 2018-10-21 23:52 | PN ---
Subjective - Date and Time Seen Date: 10/21/18 Time: 12:30 Subjective Narrative: Last night patient had more confusion. Kept requesting that everyone stop speaking and getting very irritated with family. Since then she has done well and has felt normal. MRI performed this morning shows left basal ganglia/internal capsular cavernous angioma which is likely causing the symptoms she has been having. Discussed this with patient and daugther in law. Objective - Vitals Vitals: Last Vital Signs Temp 36.5 C 10/21/18 22:00 Pulse 70 10/21/18 22:00 Resp 20 10/21/18 22:00 BP 151/95 H 10/21/18 22:00 Pulse Ox 97 10/21/18 22:00 - Abnormal Lab Findings Abnormal Lab Findings: Abnormal Lab Results 10/21/18 10/21/18 Range/Units 08:00 08:47 WBC 11.9 H (4.0-10.5) K/mm3 RBC 3.80 L (4.2-5.4) M/mm3 Hgb 11.3 L (12.5-16.0) gm/dL Hct 34.8 L (37.0-47.0) % Immature Gran % (Auto) 5.40 H (0.001-0.429) % Immature Gran # (Auto) 0.65 H (0.000-0.0310) K/mm3 Lymphocytes % 14.8 L (20-51) % Monocytes % 9.6 H (0.0-9) % Neutrophils # 8.1 H (1.3-6.0) K/mm3 Monocytes # 1.2 H (0.0-1.0) k/mm3 Alkaline Phosphatase 225 H (50-170) U/L Albumin 2.6 L (3.4-5.0) gm/dl - Exam Constitutional: Present: Alert, Oriented x3, Cooperative ENT Exam: Present: hearing grossly normal Respiratory: Present: lungs clear, normal breath sounds Cardiovascular/Chest: Present: regular rate, rhythm, no edema, no murmur Abdomen: Present: Normal bowel sounds, soft, nontender, nondistended Skin Exam: Present: normal color, warm/dry, no cyanosis Neurologic: Present: no motor/sensory deficits, alert, normal mood/affect, oriented x 3 Appearance: Present: appropriate appearance, appropriate insight Assessment/Plan Plan Narrative: Birdie has a cavernous angioma that has been causing seizure and mental status changes, as well as stroke like symptoms with left sided weakness. Will continue Keppra for seizure prevention. Will have her follow up with neurosurgery as outpatient as this does not require surgery unless unable to be medically adeline ated. Unclear if this has been present for many years or has developed more recently. She has been on trazodone for a long time and was recently given a dose of tramadol. Seizures began occurring after this. Potentially the exposure to tramadol along with presence of trazodone and the presence of this angioma created a perfect storm for her symptoms to begin. She is significantly weakened from these events and will need skilled care. Will continue to monitor neurostatus, if continues to have episodes despite keppra may need transferred to [facility]. However if symptoms can be controlled with medication may be able to discharge as soon as thursday. - Problems/Diagnosis (1) Cavernous angioma Problem: Acute (2) Seizure Problem: Acute (3) Hypokalemia Problem: Resolved (4) Colitis Problem: Resolved (5) GI bleeding Problem: Resolved Qualifiers: GI bleed type/associated pathology: unspecified gastrointestinal hemorrhage type Qualified Code(s): K92.2 - Gastrointestinal hemorrhage, unspecified
--- NOTE | 2018-10-22 06:45 | PATH ---
PHYSICIAN: Jonny Hussein DO LAB#: [id number] SPECIMEN DATE: 10/22/2018 SPECIMEN: CSF CLINICAL INFORMATION: The patient is an 82-year-old woman admitted to the hospital on 10/17/2018 for being extremely weak and unable to get out of bed. She has mental status changes and has witnessed seizures. CT scan shows chronic changes only 10/18/2018 and 10/20/2018; MRI on 10/17/2017 and 10/21/2018 shows a lesion in the basal ganglia capsule region compatible with possible cavernous hemangioma surrounded by hemosiderin and old blood potential as cause for seizures. Lumbar puncture is performed by anesthesia team (Davy Wallace CRNA), 8 mL of clear fluid obtained in four CSF tubes. Lab cell counts : no cells are seen, CSF normal glucose 59 mg/dL; normal total protein 41.8 mg/dL. GROSS DESCRIPTION: The specimen is received in the anatomic pathology in CSF tube lab appropriately designated, "CSF." The specimen consists of 4 mL of clear fluid with cytospin fixative added. 2 cytospin slides are prepared and stained with Pap stain. DIAGNOSIS: CEREBRAL SPINAL FLUID, LUMBAR PUNCTURE: -RARE LYMPHOCYTES AND MONONUCLEAR CELLS, SEE COMMENT COMMENT: This is an essentially normal cerebral spinal fluid cytologic study. The findings correlate with concurrent 0 cell counts. Cytospin concentrates the fluid to allow examination of rare cells detected. No evidence of atypia or malignancy.
[2018-10-22] MEDS: METOPROLOL TARTRATE 50 MG TABLET PO SCH ×3 (07:20→20:43)
[2018-10-22] MEDS: LISINOPRIL 40 MG TABLET PO SCH ×3 (07:21→20:43)
[2018-10-22] MEDS: SPIRONOLACTONE 25 MG TABLET PO SCH ×2 (07:21→08:42)
[2018-10-22] MEDS: LORazepam 2 MG/ML DISP.SYRIN IV PRN (07:24)
[2018-10-22] MEDS: LIDOCAINE 1 PATCH ADH..PATCH TP SCH (08:42)
[2018-10-22] MEDS: ASPIRIN 325 MG TABLET.DR PO SCH (08:43)
[2018-10-22] MEDS: CIPROFLOXACIN HCL 500 MG TABLET PO SCH ×2 (08:43→20:42)
[2018-10-23] MEDS: ACETAMINOPHEN 325 MG TABLET PO PRN ×3 (00:07→20:44)
[2018-10-23] MEDS: METOPROLOL TARTRATE 50 MG TABLET PO SCH ×2 (09:12→20:38)
[2018-10-23] MEDS: LISINOPRIL 40 MG TABLET PO SCH ×2 (09:12→20:37)
[2018-10-23] MEDS: LIDOCAINE 1 PATCH ADH..PATCH TP SCH (09:12)
[2018-10-23] MEDS: SPIRONOLACTONE 25 MG TABLET PO SCH (09:12)
[2018-10-23] MEDS: ASPIRIN 325 MG TABLET.DR PO SCH (09:12)
[2018-10-23] MEDS: CIPROFLOXACIN HCL 500 MG TABLET PO SCH ×2 (09:12→20:37)
[2018-10-24] MEDS: ACETAMINOPHEN 325 MG TABLET PO PRN ×3 (01:05→20:56)
[2018-10-24] MEDS: LISINOPRIL 40 MG TABLET PO SCH ×2 (08:48→20:56)
[2018-10-24] MEDS: ASPIRIN 325 MG TABLET.DR PO SCH (08:48)
[2018-10-24] MEDS: CIPROFLOXACIN HCL 500 MG TABLET PO SCH ×2 (08:48→20:55)
[2018-10-24] MEDS: SPIRONOLACTONE 25 MG TABLET PO SCH (08:48)
[2018-10-24] MEDS: LIDOCAINE 1 PATCH ADH..PATCH TP SCH (08:49)
[2018-10-24] MEDS: METOPROLOL TARTRATE 50 MG TABLET PO SCH ×2 (08:49→20:56)
[2018-10-24] MEDS: levETIRAcetam 500 MG TABLET PO SCH ×2 (11:08→20:55)
--- NOTE | 2018-10-24 22:46 | PN ---
Subjective - Date and Time Seen Date: 10/22/18 Time: 12:30 Subjective Narrative: Reports doing well. No episodes in last 24 hours. No fever, chills, nausea, vomiting, weakness, or pain. Discussed with [facility] neurosurgery who agree with follow up as outpatient unless she continues to have symptoms. Looking to skilled placement for rehab. Objective - Vitals Vitals: Last Vital Signs Temp 36.8 C 10/24/18 19:52 Pulse 88 10/24/18 20:56 Resp 16 10/24/18 19:52 BP 153/63 H 10/24/18 20:56 Pulse Ox 99 10/24/18 19:52 - Exam Constitutional: Present: Alert, Oriented x3, Cooperative, No distress ENT Exam: Present: hearing grossly normal Respiratory: Present: lungs clear, normal breath sounds Cardiovascular/Chest: Present: regular rate, rhythm, no edema, no murmur Abdomen: Present: Normal bowel sounds, soft, nontender, nondistended Assessment/Plan Plan Narrative: No symptoms in last 24 hours +, continue Keppra. Looking into skilled discharge. Anticipate Thursday discharge if not having episodes. - Problems/Diagnosis (1) Cavernous angioma Problem: Acute (2) Seizure Problem: Acute (3) Hypokalemia Problem: Resolved (4) Colitis Problem: Resolved (5) GI bleeding Problem: Resolved Qualifiers: GI bleed type/associated pathology: unspecified gastrointestinal hemorrhage type Qualified Code(s): K92.2 - Gastrointestinal hemorrhage, unspecified
--- NOTE | 2018-10-24 22:54 | PN ---
Subjective - Date and Time Seen Date: 10/23/18 Time: 08:00 Subjective Narrative: No concerns. No fever, chills, nausea, or vomiting. No episodes in last 2 days. Objective - Vitals Vitals: Last Vital Signs VSS - Exam Constitutional: Present: Alert, Oriented x3, Cooperative, No distress Respiratory: Present: lungs clear, normal breath sounds Cardiovascular/Chest: Present: regular rate, rhythm, no edema Abdomen: Present: Normal bowel sounds, soft, nontender, nondistended Assessment/Plan Plan Narrative: No seizures in 48 hours, continue Keppra. Plan to discharge to [facility] on thursday. Follow up with neurosurgery as outpatient. - Problems/Diagnosis (1) Cavernous angioma Problem: Acute (2) Seizure Problem: Acute (3) Hypokalemia Problem: Resolved (4) Colitis Problem: Resolved (5) GI bleeding Problem: Resolved Qualifiers: GI bleed type/associated pathology: unspecified gastrointestinal hemorrhage type Qualified Code(s): K92.2 - Gastrointestinal hemorrhage, unspecified
--- NOTE | 2018-10-24 23:23 | PN ---
Subjective - Date and Time Seen Date: 10/24/18 Time: 13:00 Subjective Narrative: Doing well. No episodes for 72 hours. No fever, chills, nausea, or vomiting. Objective - Vitals Vitals: Last Vital Signs Temp 36.8 C 10/24/18 19:52 Pulse 88 10/24/18 20:56 Resp 16 10/24/18 19:52 BP 153/63 H 10/24/18 20:56 Pulse Ox 99 10/24/18 19:52 - Exam Constitutional: Present: Alert, Oriented x3, Cooperative, No distress ENT Exam: Present: hearing grossly normal Respiratory: Present: lungs clear, normal breath sounds Cardiovascular/Chest: Present: regular rate, rhythm, no murmur Abdomen: Present: Normal bowel sounds, soft, nontender, nondistended Neurologic: Present: no motor/sensory deficits, alert, normal mood/affect, oriented x 3 Assessment/Plan Plan Narrative: Continues to do well. Will change Keppra to oral. Anticipate discharge to skilled tomorrow. - Problems/Diagnosis (1) Cavernous angioma Problem: Acute (2) Seizure Problem: Acute (3) Hypokalemia Problem: Resolved (4) Colitis Problem: Resolved (5) GI bleeding Problem: Resolved Qualifiers: GI bleed type/associated pathology: unspecified gastrointestinal hemorrhage type Qualified Code(s): K92.2 - Gastrointestinal hemorrhage, unspecified
[2018-10-25] MEDS: ACETAMINOPHEN 325 MG TABLET PO PRN ×2 (03:00→08:23)
[2018-10-25] MEDS: CIPROFLOXACIN HCL 500 MG TABLET PO SCH (08:24)
[2018-10-25] MEDS: levETIRAcetam 500 MG TABLET PO SCH (08:24)
[2018-10-25] MEDS: SPIRONOLACTONE 25 MG TABLET PO SCH ×2 (08:24→08:56)
[2018-10-25] MEDS: ASPIRIN 325 MG TABLET.DR PO SCH (08:24)
[2018-10-25] MEDS: LIDOCAINE 1 PATCH ADH..PATCH TP SCH (08:24)
[2018-10-25] MEDS: LISINOPRIL 40 MG TABLET PO SCH ×2 (08:24→08:56)
[2018-10-25] MEDS: METOPROLOL TARTRATE 50 MG TABLET PO SCH (08:25)
[2018-10-25] MEDS ORDERED: METOPROLOL TARTRATE 100 MG TABLET PO SCH (09:00)
--- NOTE | 2018-10-25 11:02 | DS ---
(1) Cavernous angioma Problem: Acute (2) Seizure Problem: Resolved (3) Hypokalemia Problem: Resolved (4) Dehydration Problem: Resolved (5) Colitis Problem: Resolved (6) GI bleeding Problem: Resolved Qualifiers: GI bleed type/associated pathology: unspecified gastrointestinal hemorrhage type Qualified Code(s): K92.2 - Gastrointestinal hemorrhage, unspecified Description of Stay: Birdie is an 82 yo female that was initially brought to the ER after being found weak at home and not eating or drinking. She was dehydrated with low potassium and admitted for IV fluids and potassium replacement. In the ER and on the floor she began having convulsions and post ictal states. She was started on IV Keppra 500mg BID. She continued to have episodes every several hours that involved confusion, staring, left sided weakness, and odd behaviors. These episodes typically lasted about 10-15 minutes. Keppra was gradually increased over time up to 1000mg BID. Head CT had been completed initially without significant abnormality. A brain MRI was done to further evaluate which showed possible cavernous angioma with acute on chronic blood products. She had an EEG performed that showed some diffuse cerebral atrophy. I discussed with Neurology who recommended repeating Brain MRI to see if blood product and angioma were changing. Brain MRI was repeated which showed stable cavernous angioma. I discussed this with [facility]surgery who recommended not performing surgery unless absolutely necessary. The episodes resolved and Birdie was at her baseline mentation for about 80+ hours prior to discharge. It is unclear how long she has had the cavernous angioma. The seizures are likely secondary to this, but other contributing factors are that she had been on trazodone for sleep and had been given tramadol in the ER prior to seizures first occurring. It is possible that with the trazodone and tramadol and presence of the cavernous angioma that her seizure threshold was reduced and thus the seizures began. Due to the events she is significantly weakened and needs strengthening. She will be discharged to shelter for PT and OT at [place]. She will follow up with Vascular-Neurosurgery at [facility] as outpatient in a couple weeks. She will remain off trazodone and tramadol. She will continue on oral Keppra 1000mg BID. Procedures Performed: none Results and Findings: Lab Pending Results 10/17/18 16:50: WBC 15.2 H, RBC 3.92 L, Hgb 11.5 L, Hct 35.1 L, MCV 89.5, MCH 29.3, MCHC 32.8, RDW 13.6, Plt Count 394, MPV 7.9 L, Immature Gran % (Auto) 1.40 H, Immature Gran # (Auto) 0.21 H, Neutrophils % 77.8 H, Lymphocytes % 12.5 L, Monocytes % 7.8, Eosinophils % 0.3, Basophils % 0.2, Nucleated RBC % 0.0, Neutrophils # 11.8 H, Lymphocytes # 1.90, Monocytes # 1.2 H, Eosinophils # 0.0, Absolute Basophils 0.0 10/17/18 16:50: Sodium 143 H, Plasma Sodium 143 H, Potassium 2.9 L, Chloride 101, Carbon Dioxide 28.4, Anion Gap 16.5 H, BUN 22, Creatinine 0.86, Est GFR (Non-Af Amer) 67, BUN/Creatinine Ratio 25.6 H, Random Glucose 107, Calcium 10.0, Calcium Adj for Albumin 10.3 H, Total Bilirubin 0.3, AST 29, ALT 42, Alkaline Phosphatase 224 H, Total Protein 7.5, Albumin 3.2 L 10/17/18 16:50: Procalcitonin 0.15 10/17/18 16:50: Amylase 27, Lipase 117 10/17/18 17:23: Urine Color Yellow, Urine Appearance Clear, Urine pH 6.5, Ur Specific [place] 1.025, Urine Protein Negative, Urine Glucose (UA) Negative, Urine Ketones 15, Urine Blood Negative, Urine Nitrate Negative, Urine Bilirubin Negative, Urine Urobilinogen Normal, Ur Leukocyte Esterase Negative, Urine RBC None seen, Urine WBC None seen, Ur Epithelial Cells None seen, Urine Bacteria None seen, Urine Culture Comments No culture indicated 10/17/18 18:51: Stool Occult Blood Positive H 10/18/18 08:05: WBC 14.2 H, RBC 3.78 L, Hgb 11.2 L, Hct 34.7 L, MCV 91.8, MCH 29.6, MCHC 32.3, RDW 13.7, Plt Count 415, MPV 8.1, Immature Gran % (Auto) 2.40 H, Immature Gran # (Auto) 0.34 H, Neutrophils % 84.3 H, Lymphocytes % 6.8 L, Monocytes % 5.9, Eosinophils % 0.1, Basophils % 0.5, Nucleated RBC % 0.0, Neutrophils # 11.9 H, Lymphocytes # 0.97 L, Monocytes # 0.8, Eosinophils # 0.0, Absolute Basophils 0.1 10/18/18 08:05: Sodium 143 H, Potassium 3.2 L, Chloride 106, Carbon Dioxide 20.7 L, Anion Gap 19.5 H 10/19/18 08:46: WBC 2.5 L D, RBC 3.76 L, Hgb 10.9 L, Hct 34.6 L, MCV 92.0, MCH 29.0, MCHC 31.5 L, RDW 13.8, Plt Count 351, MPV 8.1, Immature Gran % (Auto) 2.40 H, Immature Gran # (Auto) 0.23 H, Neutrophils % 74.8, Lymphocytes % 13.8 L, Monocytes % 8.0, Eosinophils % 0.5, Basophils % 0.5, Nucleated RBC % 0.0, Neutrophils # 7.2 H, Lymphocytes # 1.34 L, Monocytes # 0.8, Eosinophils # 0.1, Absolute Basophils 0.1 10/19/18 08:46: Sodium 143 H, Plasma Sodium 143 H, Potassium 3.1 L, Chloride 107 H, Carbon Dioxide 26.4, Anion Gap 12.7, BUN 10 D, Creatinine 0.72, Est GFR (Non-Af Amer) 82 D, BUN/Creatinine Ratio 13.9, Random Glucose 82, Calcium 9.3, Calcium Adj for Albumin 9.9, Total Bilirubin 0.3, AST 37, ALT 36, Alkaline Phosphatase 215 H, Total Protein 6.8, Albumin 2.9 L, TSH 3.004 10/20/18 09:28: WBC 10.2 D, RBC 3.74 L, Hgb 11.0 L, Hct 34.9 L, MCV 93.3, MCH 29.4, MCHC 31.5 L, RDW 14.1 H, Plt Count 348, MPV 7.9 L, Neutrophils % (Manual) 71, Band Neuts % (Manual) 7 H, Lymphocytes % (Manual) 16 L, Monocytes % (Manual) 2, Eosinophils % (Manual) 1, Neutrophils # (Manual) 7.2 H, Lymphocytes # (Manual) 1.6, Monocytes # (Manual) 0.2, Eosinophils # (Manual) 0.1, Atypic/Reactive Lymphs 3 H, Platelet Estimate Normal, RBC Morphology Normal 10/20/18 09:28: Sodium 140, Plasma Sodium 142, Potassium 3.7, Chloride 106, Carbon Dioxide 24.3, Anion Gap 13.4, BUN 15, Creatinine 0.93, Est GFR (Non-Af Amer) 61 D, BUN/Creatinine Ratio 16.1, Random Glucose 206 H D, Calcium 9.1, Calcium Adj for Albumin 9.7, Total Bilirubin 0.2, AST 33, ALT 39, Alkaline Phosphatase 224 H, Total Protein 6.8, Albumin 2.9 L 10/21/18 08:00: WBC 11.9 H, RBC 3.80 L, Hgb 11.3 L, Hct 34.8 L, MCV 91.6, MCH 29.7, MCHC 32.5, RDW 14.0, Plt Count 345, MPV 8.3, Immature Gran % (Auto) 5.40 H, Immature Gran # (Auto) 0.65 H, Neutrophils % 67.6, Lymphocytes % 14.8 L, Monocytes % 9.6 H, Eosinophils % 2.3, Basophils % 0.3, Nucleated RBC % 0.0, Neutrophils # 8.1 H, Lymphocytes # 1.77, Monocytes # 1.2 H, Eosinophils # 0.3, Absolute Basophils 0.0 10/21/18 08:47: Sodium 136, Plasma Sodium 136, Potassium 4.0, Chloride 103, Carbon Dioxide 25.4, Anion Gap 11.6, BUN 13, Creatinine 0.74, Est GFR (Non-Af Amer) 80 D, BUN/Creatinine Ratio 17.6, Random Glucose 95 D, Calcium 9.1, Calcium Adj for Albumin 9.9, Total Bilirubin 0.2, AST 40, ALT 35, Alkaline Phosphatase 225 H, Total Protein 6.2, Albumin 2.6 L 10/21/18 13:25: Miscellaneous Cytology Spec. sent to path. 10/21/18 13:45: CSF Appearance Clear, CSF Color Colorless, CSF WBC 0, CSF RBC 0, CSF Lymphocytes No Print 10/21/18 13:45: CSF Glucose 59, CSF Total Protein 41.8 Discharge Location: [facility] Disposition: [facility] Condition: Stable Level of Care: SNF Discharge Activity: Activity as tolerated Discharge Diet: General/regular food Retirement Therapy: Physicial Therapy, Occupation Therapy Referrals: DOC,OUTSIDE [Non Staff Physicians] - Two Weeks ([facility] (Vascular Neurosurgeon)) Jonny Hussein DO [Staff Physician] - (May follow up with [facility] if patient wishes, or otherwise may establish with new provider if not already scheduled.) Problem Oriented Discharge Instructions to Patient/Family: Cavernous Malformation Additional Patient Instructions (free text): If symptoms begin occurring again such as seizures, severe headache, or stroke like symptoms she should present to the ER immediately and transfer to [facility]. Prescriptions (Any new or edited meds): levETIRAcetam [Keppra] 1,000 mg PO BID #60 tablet Metoprolol Tartrate [Lopressor] 100 mg PO BID #60 tablet Complete Home Medications List: Complete Home Medication List: lisinopril 40 mg tablet 40 mg PO BID #180 tab 08/18/18 furosemide 40 mg tablet 40 mg PO DAILY #90 tab 08/23/18 spironolactone 25 mg tablet 25 mg PO DAILY #90 tab 08/23/18 Acetaminophen [Tylenol] 650 mg PO Q4H PRN tab 10/16/18 Metoprolol Tartrate [Lopressor] 100 mg PO BID #60 tablet 10/25/18 levETIRAcetam [Keppra] 1,000 mg PO BID #60 tablet 10/25/18
[2018-10-25 13:22] VITALS: BP 130/68
== END 2018-10-25 13:03 | DRG 92 ==
LOC: ER 16:16 → MS 19:58
PROVIDERS: ADMIT Family Medicine; ATTEND Family Medicine
DX: E87.6 Hypokalemia; D18.02 Hemangioma of intracranial structures; K52.9 Noninfective gastroenteritis and colitis, unspecified; E86.0 Dehydration; R56.9 Unspecified convulsions; R53.1 Weakness; K92.2 Gastrointestinal hemorrhage, unspecified
CPT/HCPCS: 36415; 70450; 70551; 70553; 72110; 74177; 80051; 80053; 81001; 82150; 82272; 82945; 82947; 83690; 84145; 84155; 84157; 84443; 85007; 85025; 85027; 85610; 85730; 86850; 86900; 87040; 87045; 87046; 87070; 87075; 87086; 87177; 87209; 88108; 89051; 93005; 95813; 96365; 96366; 96374; 96375; 97110; 97112; 97116; 97162; 97165; 97535; 99285; G0378